=== PATIENT | female | born 1950 | race Caucasian/White ===

== ENCOUNTER → 2017-03-14 | Outpatient (CLI) | payer MEDICARE ==
--- NOTE | 2017-03-14 10:31 | MM ---
Reason for exam: screening (asymptomatic). Last mammogram was performed 1 year and 1 month ago. History: Patient is postmenopausal. Benign right US cyst aspiration ea add of the right breast, July 23, 2007. Benign right US cyst aspiration of the right breast, July 23, 2007. Benign US left CoreBiopsy of both breasts, July 23, 2007. Benign US left CoreBiopsy of both breasts, July 23, 2007. Benign US right core biopsy of the right breast, July 23, 2007. Took estrogen for 5 years 1 month. Took progesterone for 5 years 1 month. Physical Findings: A clinical breast exam by your physician is recommended on an annual basis and results should be correlated with mammographic findings. MG 3D Screening Mammo W/Cad Bilateral CC and MLO view(s) were taken. Prior study comparison: February 07, 2016, bilateral MG 3d screening mammo w/cad. April 05, 2014, bilateral MG screening mammo w CAD. The breast tissue is extremely dense which could obscure a lesion on mammography. Finding: There are typically benign calcifications in both breasts. Previous mammotome biopsy in the right and left breast. There is a chronic nodularity in the left breast, stable. No significant changes in finding since February 07, 2016 and April 05, 2014. ASSESSMENT: Benign, BI-RAD 2 RECOMMENDATION: Routine screening mammogram of both breasts in 1 year.
== END | disposition home or self-care (01) ==
LOC: RADMAMWWP 08:08
PROVIDERS: ATTEND Internal Medicine Geriatric Medicine
DX: Z12.31 Encounter for screening mammogram for malignant neoplasm of breast (principal)
CPT/HCPCS: 77063; G0202

== ENCOUNTER 2017-07-12 06:50 | Day surgery (SDC) | payer MEDICARE ==
[2017-07-10 11:17] VITALS: BMI 33.2
[~2017-07-12 06:50] MED LIST: LACTATED RINGERS 1,000 ML IV SCH
[2017-07-12 07:13] VITALS: TEMP 98
[2017-07-12 07:22] LABS: Glucose,Whole Blood 121 mg/dL (75-99)
[2017-07-12] MEDS ORDERED: PROPOFOL 10 MG/ML 20 ML VIAL IV ONE (07:31)
[2017-07-12] MEDS ORDERED: LIDOCAINE 1% INJ 10MG/ML (20 ML MDV) ONE (07:31)
--- NOTE | 2017-07-12 08:01 | P.PCN ---
Date of Procedure: 07/12/17 Procedure(s) Performed: Brief history: Patient is a pleasant 66-year-old white female, scheduled for an elective upper endoscopy as well as colonoscopy as a part of evaluation of intermittent dysphagia to solids and history of colon polyps. She had an episode of acute for dysphagia several years ago and was diagnosed with esophageal Schatzki's ring and last upper endoscopy with dilation was in 5 years ago. Lately she has been having intermittent dysphagia to solids. Her last colonoscopy was 5 years ago. Procedure performed: Esophagogastroduodenoscopy with biopsy and dilation Colonoscopy Preoperative diagnosis: Intermittent dysphagia to solids History of colon polyps Anesthesia: MAC Procedure: After informed consent was obtained from the patient was brought into the endoscopy unit and IV sedation was administered by anesthesia under continuous monitoring. Initially upper endoscopy was done. The Olympus GF 160 video endoscope was inserted inserted into the mouth and esophagus intubated without any difficulty and was gradually advanced into the stomach and duodenum and carefully examined. The bulb and second part of the duodenum appeared normal. The scope was then withdrawn into the stomach adequately insufflated with air and upon careful examination the antrum and body, appeared normal. In the proximal body. There were several gastric polyps identified which was biopsied. The cardia and fundus appeared normal. The scope was then withdrawn into the esophagus. Small hiatal hernia noted. The GE junction was located at 36 cm to the incisors. There was a distal esophageal Schatzki's ring identified which did not impede the passage of the scope. Because of the patient's symptoms I proceeded with a balloon dilation using 15-18 mm TTS balloon in a sequential fashion for total of 90 seconds. There was some mucosal oozing noted at the site of dilation. Further dilation was not performed. The GE junction appeared regular with no erythema erosions or ulcerations. Rest of the esophagus appeared normal. Patient tolerated the procedure well. At this time the patient continued to remain sedation. Initial digital rectal examination was normal. Olympus CF 160 video colonoscope was then inserted into the rectum and gradually advanced to the cecum without any difficulty. Careful examination was performed as the scope was gradually being withdrawn. The prep was excellent. The cecum, ascending colon, transverse colon, descending colon, sigmoid colon and rectum appeared normal. Scattered sigmoid diverticulosis seen. Retroflexion was performed in the rectum and no lesions were noted. Patient tolerated the procedure well. Impression: 1. Upper endoscopy revealed distal esophageal Schatzki's ring status post balloon dilation oozing 15-18 mm TTS balloon as described above. Small hiatal hernia and gastric polyps seen 2. Coloscopy revealed scattered sigmoid diverticulosis but no evidence of colitis or colorectal neoplasia Recommendations: Findings of this examination were discussed with the patient as well as her family. She was advised to follow with the biopsy results. She will remain on a clear liquid diet today, continue Prilosec 20 mg daily and follow anti-reflux measures. She can have a repeat colonoscopy in 5 years because of the prior history of colon polyps
[2017-07-12 08:02] VITALS: RESP 16
[2017-07-12 08:25] VITALS: BP 146/80; PULSE 74
== END 2017-07-12 08:53 | disposition home or self-care (01) ==
LOC: ORWHC2ENDO 06:50
PROVIDERS: ATTEND Internal Medicine Gastroenterology
DX: Z12.11 Encounter for screening for malignant neoplasm of colon (principal); K29.50 Unspecified chronic gastritis without bleeding; K21.9 Gastro-esophageal reflux disease without esophagitis; K22.2 Esophageal obstruction; K44.9 Diaphragmatic hernia without obstruction or gangrene; K31.7 Polyp of stomach and duodenum; K57.30 Diverticulosis of large intestine without perforation or abscess without bleeding; Z86.010 Personal history of colon polyps; E78.5 Hyperlipidemia, unspecified; E11.9 Type 2 diabetes mellitus without complications; Z79.84 Long term (current) use of oral hypoglycemic drugs; Z79.899 Other long term (current) drug therapy; Z88.8 Allergy status to other drugs, medicaments and biological substances
CPT/HCPCS: 88305; 88342; 43239; 43249; J2001; J2704; C1726; G0105; 45378

== ENCOUNTER → 2017-08-15 | Outpatient (CLI) | payer MEDICARE ==
--- NOTE | 2017-08-15 16:11 | XR ---
EXAMINATION TYPE: XR chest 2V DATE OF EXAM: 08/15/2017 COMPARISON: NONE HISTORY: Cough and congestion TECHNIQUE: Frontal and lateral views of the chest are obtained. FINDINGS: There is no focal air space opacity, pleural effusion, or pneumothorax seen. The cardiac silhouette size is within normal limits. The osseous structures are intact. Dextroscoliosis of the thoracic spine is noted with mild degenerative changes of the thoracic spine IMPRESSION: No acute cardiopulmonary process.
== END | disposition home or self-care (01) ==
LOC: RADXRMAIN 15:35
PROVIDERS: ATTEND Internal Medicine Geriatric Medicine
DX: J40 Bronchitis, not specified as acute or chronic (principal)
CPT/HCPCS: 71020

== ENCOUNTER 2019-03-14 18:23 | Inpatient (IN) | payer MEDICARE ==
[2019-03-14] MEDS ORDERED: SODIUM CHLORIDE 0.9% 1,000 ML IV STA ×2 (18:55)
[2019-03-14] MEDS ORDERED: PANTOPRAZOLE 40 MG/10 ML VIAL IVP STA (18:55)
[2019-03-14] MEDS ORDERED: KETOROLAC 30 MG/ML 1 ML VIAL IVP STA (18:55)
--- NOTE | 2019-03-14 19:10 | ED ---
Abdominal Pain HPI - General Source: patient, RN notes reviewed, old records reviewed Mode of arrival: ambulatory Limitations: no limitations <Moraima Lara - Last Filed: 03/14/19 20:15> <Vijay Moreno - Last Filed: 03/14/19 20:52> - General Chief Complaint: Abdominal Pain Stated Complaint: ABDOMINAL PAIN, BLADDER DISTENSION, POSS CONSTIPAT Time Seen by Provider: 03/14/19 18:34 - History of Present Illness Initial Comments: Patient is a 68-year-old female who presents prescribed today with 2 weeks of abdominal distention, and lower abdominal pain. Patient states that she initially thought she had a urinary tract infections are primary care doctor 2 weeks ago. That time her urine was clear, just started on stool softeners. Patient states that since that time and despite taking stool softeners she has not had some bowel movement but has not been eating much. Patient states that she's had a history of instructed me, rectocele and bladder sling procedure done by Dr. Harris many years ago. Patient reports that she's been having some chills but no specific fever. She is also had a minor cough which Patient states that the could just likely be viral. Her main concern is lower abdominal pain and distention. Patient reports that she's had colonoscopy 2 years ago which showed some benign polyps and diverticulosis. (Moraima Lara) - Related Data Home Medications Medication Instructions Recorded Confirmed Omeprazole [PriLOSEC] 20 mg PO HS 07/10/17 03/14/19 Simvastatin [Zocor] 20 mg PO HS 07/10/17 03/14/19 Ergocalciferol [Vitamin D2] 50,000 unit PO TU 03/14/19 03/14/19 Polyethylene Glycol 3350 [Miralax] 17 gm PO HS 03/14/19 03/14/19 Repaglinide [Prandin] 1 mg PO AC-BID 03/14/19 03/14/19 Sennosides [Senokot] 8.6 mg PO HS 03/14/19 03/14/19 sitaGLIPtin [Januvia] 100 mg PO HS 03/14/19 03/14/19 Allergies Allergy/AdvReac Type Severity Reaction Status Date / Time chlorpromazine AdvReac felt like Verified 03/14/19 18:59 [From Thorazine] skin crawling Review of Systems ROS Other: All systems not noted in ROS Statement are negative. <JaneMoraima - Last Filed: 03/14/19 20:15> ROS Other: All systems not noted in ROS Statement are negative. <Vijay Moreno Lexx - Last Filed: 03/14/19 20:52> ROS Statement: Those systems with pertinent positive or pertinent negative responses have been documented in the HPI. Past Medical History Past Medical History: Diabetes Mellitus, GERD/Reflux, Hyperlipidemia Additional Past Medical History / Comment(s): hx. colon polyps, Schatzki's ring History of Any Multi-Drug Resistant Organisms: None Reported Past Surgical History: Hysterectomy Additional Past Surgical History / Comment(s): rectocele,cystocele repair Past Anesthesia/Blood Transfusion Reactions: No Reported Reaction Smoking Status: Never smoker Past Alcohol Use History: None Reported Past Drug Use History: None Reported - Past Family History Father Family Medical History: Cancer <Moraima Lara - Last Filed: 03/14/19 20:15> General Exam Limitations: no limitations General appearance: alert, in no apparent distress Head exam: Present: atraumatic, normocephalic, normal inspection Eye exam: Present: normal appearance, PERRL, EOMI. Absent: scleral icterus, conjunctival injection, periorbital swelling ENT exam: Present: normal exam, mucous membranes moist Neck exam: Present: normal inspection. Absent: tenderness, meningismus, lymphadenopathy Respiratory exam: Present: normal lung sounds bilaterally. Absent: respiratory distress, wheezes, rales, rhonchi, stridor Cardiovascular Exam: Present: regular rate, normal rhythm, normal heart sounds. Absent: systolic murmur, diastolic murmur, rubs, gallop, clicks GI/Abdominal exam: Present: soft, distended, normal bowel sounds. Absent: tenderness, guarding, rebound, rigid Extremities exam: Present: normal inspection, full ROM, normal capillary refill. Absent: tenderness, pedal edema, joint swelling, calf tenderness Back exam: Present: normal inspection Neurological exam: Present: alert, oriented X3, CN II-XII intact Psychiatric exam: Present: normal affect, normal mood Skin exam: Present: warm, dry, intact, normal color. Absent: rash <Moraima Lara - Last Filed: 06/15/19 20:15> - General Exam Comments Initial Comments: 5-year-old female. Alert and oriented 3. No distress. (Moraima Lara) Course Vital Signs 03/14/19 18:28 Temperature 98.3 F Pulse Rate 122 H Respiratory 18 Rate Blood Pressure 141/81 O2 Sat by Pulse 98 Oximetry Medical Decision Making - Lab Data Result diagrams: 03/14/19 18:55 03/14/19 18:55 - Radiology Data Radiology results: report reviewed <Moraima Lara - Last Filed: 03/14/19 20:15> - Lab Data Result diagrams: 03/14/19 18:55 03/14/19 18:55 <Vijay Moreno - Last Filed: 03/14/19 20:52> - Medical Decision Making Patient is a 68-year-old female presents for in terms today with left lower quadrant pain, concern for lack of bowel movements and lower abdominal abdominal distention. Chest left lower quadrant tenderness. Blood work was reviewed. She does have elevated white blood cell count of 15,000 with a mild of a lactic acid 2.3. She was given fluids. Abdominal x-ray shows normal bowel gas pattern, no significant obstruction. Chest x-ray shows evidence of mild bronchitis. She does report a slight cough. Due to the elevated white blood cell count continued tenderness Patient had CT abdomen and pelvis with contrast completed. Dr. Moreno and will take over the case at 8:16 PM. (Moraima Lara) Patient care was signed out to me by previous shift physician mailroom assistant Amy Lara. Patient is 68-year-old female who presents with left lower quadrant abdominal symptoms for the last 2-3 weeks. Patient does have constitutional symptoms. She does have white count 15. CT shows complex diverticulitis with abscess formation. Patient started on Zosyn. Discussed patient case with general surgeon on-call who requests the patient be admitted to him with medicine on consultation. Patient is understandable and agreeable to disposition. (Vijay Moreno) - Lab Data Lab Results 03/14/19 03/14/19 03/14/19 Range/Units 18:55 18:55 18:55 WBC 15.6 H (3.8-10.6) k/uL RBC 4.27 (3.80-5.40) m/uL Hgb 12.3 (11.4-16.0) gm/dL Hct 36.7 (34.0-46.0) % MCV 85.9 (80.0-100.0) fL MCH 28.8 (25.0-35.0) pg MCHC 33.6 (31.0-37.0) g/dL RDW 14.7 (11.5-15.5) % Plt Count 375 (150-450) k/uL Neutrophils % 80 % Lymphocytes % 10 % Monocytes % 7 % Eosinophils % 1 % Basophils % 0 % Neutrophils # 12.5 H (1.3-7.7) k/uL Lymphocytes # 1.5 (1.0-4.8) k/uL Monocytes # 1.1 H (0-1.0) k/uL Eosinophils # 0.2 (0-0.7) k/uL Basophils # 0.1 (0-0.2) k/uL Sodium 137 (137-145) mmol/L Potassium 4.3 (3.5-5.1) mmol/L Chloride 100 (98-107) mmol/L Carbon Dioxide 25 (22-30) mmol/L Anion Gap 12 mmol/L BUN 9 (7-17) mg/dL Creatinine 0.73 (0.52-1.04) mg/dL Est GFR (CKD-EPI)AfAm >90 (>60 ml/min/1.73 sqM) Est GFR (CKD-EPI)NonAf 84 (>60 ml/min/1.73 sqM) Glucose 128 H (74-99) mg/dL Plasma Lactic Acid Dread (0.7-2.0) mmol/L Calcium 9.2 (8.4-10.2) mg/dL Total Bilirubin 0.7 (0.2-1.3) mg/dL AST 22 (14-36) U/L ALT 31 (9-52) U/L Alkaline Phosphatase 141 H (38-126) U/L Total Protein 6.7 (6.3-8.2) g/dL Albumin 3.5 (3.5-5.0) g/dL Amylase <30 L (30-110) U/L Lipase 30 (23-300) U/L Urine Color Yellow Urine Appearance Cloudy H (Clear) Urine pH 6.5 (5.0-8.0) Ur Specific [place] 1.017 (1.001-1.035) Urine Protein 1+ H (Negative) Urine Glucose (UA) 2+ H (Negative) Urine Ketones Negative (Negative) Urine Blood Negative (Negative) Urine Nitrite Negative (Negative) Urine Bilirubin Negative (Negative) Urine Urobilinogen <2.0 (<2.0) mg/dL Ur Leukocyte Esterase Negative (Negative) Urine WBC 7 H (0-5) /hpf Ur Squamous Epith Cells 13 H (0-4) /hpf Urine Bacteria Few H (None) /hpf Urine Mucus Many H (None) /hpf Stool Occult Blood (Negative) 03/14/19 03/14/19 Range/Units 18:55 19:30 WBC (3.8-10.6) k/uL RBC (3.80-5.40) m/uL Hgb (11.4-16.0) gm/dL Hct (34.0-46.0) % MCV (80.0-100.0) fL MCH (25.0-35.0) pg MCHC (31.0-37.0) g/dL RDW (11.5-15.5) % Plt Count (150-450) k/uL Neutrophils % % Lymphocytes % % Monocytes % % Eosinophils % % Basophils % % Neutrophils # (1.3-7.7) k/uL Lymphocytes # (1.0-4.8) k/uL Monocytes # (0-1.0) k/uL Eosinophils # (0-0.7) k/uL Basophils # (0-0.2) k/uL Sodium (137-145) mmol/L Potassium (3.5-5.1) mmol/L Chloride (98-107) mmol/L Carbon Dioxide (22-30) mmol/L Anion Gap mmol/L BUN (7-17) mg/dL Creatinine (0.52-1.04) mg/dL Est GFR (CKD-EPI)AfAm (>60 ml/min/1.73 sqM) Est GFR (CKD-EPI)NonAf (>60 ml/min/1.73 sqM) Glucose (74-99) mg/dL Plasma Lactic Acid Dread 2.3 H* (0.7-2.0) mmol/L Calcium (8.4-10.2) mg/dL Total Bilirubin (0.2-1.3) mg/dL AST (14-36) U/L ALT (9-52) U/L Alkaline Phosphatase (38-126) U/L Total Protein (6.3-8.2) g/dL Albumin (3.5-5.0) g/dL Amylase (30-110) U/L Lipase (23-300) U/L Urine Color Urine Appearance (Clear) Urine pH (5.0-8.0) Ur Specific [place] (1.001-1.035) Urine Protein (Negative) Urine Glucose (UA) (Negative) Urine Ketones (Negative) Urine Blood (Negative) Urine Nitrite (Negative) Urine Bilirubin (Negative) Urine Urobilinogen (<2.0) mg/dL Ur Leukocyte Esterase (Negative) Urine WBC (0-5) /hpf Ur Squamous Epith Cells (0-4) /hpf Urine Bacteria (None) /hpf Urine Mucus (None) /hpf Stool Occult Blood Negative (Negative) - Radiology Data Correlating for bronchitis or asthma on chest x-ray. No focal infiltrate. CT shows evidence of ST scoliosis. No evidence of bowel obstruction or free intraperitoneal air. (Moraima Lara) Disposition <Moraima Lara - Last Filed: 03/14/19 20:15> Decision Time: 20:52 <Vijay Moreno - Last Filed: 03/14/19 20:52> Clinical Impression: Diverticulitis of large intestine with complication Disposition: ADMITTED IP TO THIS HOSP Condition: Fair Referrals: Tariq Ann MD [Primary Care Provider] - 1-2 days
[2019-03-14 19:21] LABS: Basophils # (A) 0.1 k/uL (0-0.2); Basophils % (A) 0 %; Eosinophils # (A) 0.2 k/uL (0-0.7); Eosinophils % (A) 1 %; HCT 36.7 % (34.0-46.0); HGB 12.3 gm/dL (11.4-16.0); Lymphocytes # (A) 1.5 k/uL (1.0-4.8); Lymphocytes % (A) 10 %; MCH 28.8 pg (25.0-35.0); MCHC 33.6 g/dL (31.0-37.0); MCV 85.9 fL (80.0-100.0); Mean Platelet Volume 7.8; Monocytes # (A) 1.1 k/uL (0-1.0); Monocytes % (A) 7 %; Neutrophils # (A) 12.5 k/uL (1.3-7.7); Neutrophils % (A) 80 %; Platelet Count 375 k/uL (150-450); RBC 4.27 m/uL (3.80-5.40); RDW 14.7 % (11.5-15.5); WBC 15.6 k/uL (3.8-10.6)
[2019-03-14 19:30] LABS: ALT 31 U/L (9-52); AST 22 U/L (14-36); African American GFR (CKD) >90 (>60 ml/min/1.73 sqM); Albumin 3.5 g/dL (3.5-5.0); Alkaline Phosphatase 141 U/L (38-126); Amylase <30 U/L (30-110); Anion Gap 12 mmol/L; Blood Urea Nitrogen 9 mg/dL (7-17); Calcium 9.2 mg/dL (8.4-10.2); Carbon Dioxide 25 mmol/L (22-30); Chloride 100 mmol/L (98-107); Glucose 128 mg/dL (74-99); Lipase 30 U/L (23-300); Potassium 4.3 mmol/L (3.5-5.1); Sodium 137 mmol/L (137-145); Total Bilirubin 0.7 mg/dL (0.2-1.3); Total Protein 6.7 g/dL (6.3-8.2)
[2019-03-14 19:34] LABS: Appearance,Urine Cloudy (Clear); Bacteria,Urine Few /hpf; Bilirubin,Urine Negative (Negative); Blood,Urine Negative (Negative); Color,Urine Yellow; Glucose,Urine (UA) 2+ (Negative); Ketones,Urine Negative (Negative); Leukocyte Esterase,Urine Negative (Negative); Mucus,Urine Many /hpf; Nitrite,Urine Negative (Negative); PH, Urine 6.5 (5.0-8.0); Protein,Urine 1+ (Negative); Specific Gravity,Urine 1.017 (1.001-1.035); Squamous Epithelial Cell,Urine 13 /hpf (0-4); Urobilinogen,Urine <2.0 mg/dL (<2.0); WBC,Urine 7 /hpf (0-5)
--- NOTE | 2019-03-14 19:50 | XR ---
EXAMINATION TYPE: XR chest 2V DATE OF EXAM: 03/14/2019 COMPARISON: 08/15/2017 HISTORY: 68-year-old female with pain TECHNIQUE: PA and lateral views FINDINGS: The heart is normal size. Dextroconvexed scoliosis of the thoracic spine. Mild elongation thoracic ao rta. Diffuse peribronchial cuffing. No consolidation or pleural effusion. IMPRESSION: 1. Correlate for bronchitis or asthma. No focal infiltrate. 2. Dextroconvex scoliosis.
--- NOTE | 2019-03-14 19:51 | XR ---
EXAMINATION TYPE: XR KUB DATE OF EXAM: 03/14/2019 CLINICAL DATA: 68-year-old female with abdominal pain, [facility] COMPARISON: None FINDINGS: Lung bases are clear. No evidence for free intraperitoneal air. No dilated small bowel or air-fluid levels. Scattered air air is seen throughout the colon extending distally into the rectum. No suspicious calcifications identified. S-shaped scoliosis. IMPRESSION: S-shaped scoliosis. No evidence of bowel obstruction or free intraperitoneal air.
[2019-03-14] MEDS ORDERED: MORPHINE SULFATE 4 MG/ML SYRINGE IVP STA (19:56)
--- NOTE | 2019-03-14 20:31 | CT ---
EXAMINATION TYPE: CT abdomen pelvis w con DATE OF EXAM: 03/14/2019 COMPARISON: 08/16/2015 HISTORY: 68-year-old female with pelvic pain and bloating TECHNIQUE: Contiguous axial scanning of the abdomen and pelvis following administration of 100 ml Iso dina 300 IV contrast. Delayed images through the kidneys and coronal/sagittal reconstructions perform ed. CT DLP: 875 mGycm Automated exposure control for dose reduction was used. FINDINGS: Heart normal size without pericardial effusion. Right basilar pulmonary nodules measuring up to 7 mm are unchanged from 2015 compatible with benign etiology. No pleural effusion. Moderate sized hiatal hernia is redemonstrated. No focal liver lesion or biliary ductal dilatation. Portal venous system is patent. Gallbladder, adrenal glands, left kidney, spleen with hilar splenule, pancreas appear within normal l imits. No dilated small bowel, free fluid, or free air. No mesenteric or retroperitoneal lymphadenopathy. There is sigmoid diverticulosis with wall thickening involving the distal sigmoid and moderate to sev ere surrounding inflammatory fat stranding tracking down along the inferior rectum. There is thickened soft tissue bands extending from the distal sigmoid to the right adnexa where a 2. 2 cm fluid locule involves the right ovary. Additional thickened band extending to the left adnexa. Along the mid rectum, there is a possible abnormal extension extending anteriorly to the vaginal cuff region where a 5.0 x 6.1 cm thick-walled fluid collection is present. The vaginal canal itself appea rs relatively collapsed. No obvious pelvic lymphadenopathy. Bones: Degenerative changes at the hips. Hypertrophic facet arthropathy mid to lower lumbar spine wit h grade 1 anterolisthesis at L4-L5. Incidental 1.5 cm Tarlov cyst within the left sacrum. IMPRESSION: 1. EXTENSIVE INFLAMMATORY CHANGES IN THE PELVIS. THERE IS SIGMOID DIVERTICULOSIS WITH WALL THICKENING AND MODERATE TO SEVERE SURROUNDING INFLAMMATION SUGGESTING ACUTE DIVERTICULITIS. INFLAMMATORY CHANGE S EXTEND ALONG THE DISTAL SIGMOID EXTENDING DOWN TO THE RECTUM. 2. A 6.1 X 5.0 CM ABSCESS LOCATED NEAR THE VAGINAL CUFF REGION WITH MASS EFFECT ONTO THE POSTERIOR WA LL OF THE BLADDER. POSSIBLE FISTULOUS COMMUNICATION FROM THE RECTUM LOCATED POSTERIORLY, AXIAL IMAGE 67. 3. THICKENED SOFT TISSUE EXTENSIONS (FISTULA TRACTS?) FROM THE DISTAL SIGMOID TO BOTH THE RIGHT AND L EFT ADNEXA. THERE IS A CYSTIC LOCULE WITHIN THE RIGHT ADNEXA MEASURING 2.2 CM THAT COULD REPRESENT AN ADDITIONAL SMALL ABSCESS.
[2019-03-14] MEDS ORDERED: PIPERACILLIN-TAZOBACTAM 3.375 GM in SODIUM CHLORIDE 0.9% 100 ML IVPB STA (20:36)
[2019-03-14] MEDS ORDERED: NALOXONE 0.4 MG/ML 1 ML VIAL IV PRN (20:52)
[2019-03-14] MEDS ORDERED: ONDANSETRON 4 MG/2 ML VIAL IVP PRN (20:52)
[2019-03-14] MEDS ORDERED: ACETAMINOPHEN TAB 325 MG TAB PO PRN (20:52)
[2019-03-14] MEDS: SODIUM CHLORIDE 0.9% 1,000 ML IV SCH (22:30)
[2019-03-14] MEDS: HEPARIN SODIUM,PORCINE 5,000 UNIT/ML 1 ML VIAL SQ SCH (23:25)
[2019-03-14] MEDS: metroNIDAZOLE-NS PMX 500 MG in SALINE 1 100ML.BAG IVPB SCH (23:26)
[2019-03-15] MEDS: PIPERACILLIN-TAZOBACTAM 3.375 GM in SODIUM CHLORIDE 0.9% 100 ML IVPB SCH ×3 (05:27→21:53)
[2019-03-15] MEDS: HEPARIN SODIUM,PORCINE 5,000 UNIT/ML 1 ML VIAL SQ SCH ×3 (06:44→23:42)
[2019-03-15 07:13] LABS: Basophils % (A) 0 %; Eosinophils # (A) 0.2 k/uL (0-0.7); Eosinophils % (A) 1 %; HCT 33.7 % (34.0-46.0); Lymphocytes # (A) 1.3 k/uL (1.0-4.8); Lymphocytes % (A) 11 %; MCH 28.7 pg (25.0-35.0); MCHC 32.8 g/dL (31.0-37.0); MCV 87.5 fL (80.0-100.0); Mean Platelet Volume 6.9; Monocytes # (A) 0.8 k/uL (0-1.0); Monocytes % (A) 6 %; Neutrophils # (A) 9.8 k/uL (1.3-7.7); Neutrophils % (A) 80 %; Platelet Count 329 k/uL (150-450); RBC 3.85 m/uL (3.80-5.40); WBC 12.2 k/uL (3.8-10.6)
[2019-03-15 07:28] LABS: INR 0.9 (<1.2); Partial Thromboplastin Time 23.3 sec (22.0-30.0)
[2019-03-15 08:15] LABS: ALT 18 U/L (9-52); AST 23 U/L (14-36); African American GFR (CKD) >90 (>60 ml/min/1.73 sqM); Albumin 2.9 g/dL (3.5-5.0); Alkaline Phosphatase 116 U/L (38-126); Anion Gap 11 mmol/L; Blood Urea Nitrogen 9 mg/dL (7-17); Calcium 8.5 mg/dL (8.4-10.2); Carbon Dioxide 21 mmol/L (22-30); Chloride 108 mmol/L (98-107); Glucose 119 mg/dL (74-99); Potassium 3.7 mmol/L (3.5-5.1); Sodium 140 mmol/L (137-145); Total Bilirubin 0.7 mg/dL (0.2-1.3); Total Protein 5.9 g/dL (6.3-8.2)
[2019-03-15] MEDS: metroNIDAZOLE-NS PMX 500 MG in SALINE 1 100ML.BAG IVPB SCH ×2 (10:09→16:00)
[2019-03-15] MEDS: PANTOPRAZOLE 40 MG TABLET PO SCH (10:13)
[2019-03-15] MEDS: MORPHINE SULFATE 4 MG/ML SYRINGE IV PRN (10:16)
--- NOTE | 2019-03-15 10:23 | P.GSHP ---
History of Present Illness H&P Date: 03/15/19 Chief Complaint: Diverticular abscess 68-year-old female comes in the ER yesterday with complaints of lower abdominal pain. Patient states this has been gradually increasing. Slightly to the left of midline. Also has had constipated. Some chills but no fever. Feels bloa nelida. Last colonoscopy 2-3 years ago. In mid January the patient had an episode of lower abdominal pain and fevers. She felt that at that time she had food poisoning possibly. CAT scan was performed which reveals a 4.5-5 cm abscess between the sigmoid colon and bladder. An adjacent smaller 2.5 cm abscess is also noted. No free air is seen. This appears most consistent with a diverticular abscess. Patient did have 1 episode of diverticulitis 3-4 years ago. - Review of Systems Comment: The patient denies any acute changes in vision or hearing, no dysphagia or odynophagia, no chest pain or shortness of breath, no dysuria or hematuria, no headache, no runny nose, no rectal bleeding or melena, no unexplained weight loss Past Medical History Past Medical History: Diabetes Mellitus, GERD/Reflux, Hyperlipidemia Additional Past Medical History / Comment(s): hx. colon polyps, Schatzki's ring History of Any Multi-Drug Resistant Organisms: None Reported Past Surgical History: Hysterectomy Additional Past Surgical History / Comment(s): rectocele,cystocele repair Past Anesthesia/Blood Transfusion Reactions: No Reported Reaction Smoking Status: Never smoker Past Alcohol Use History: None Reported Past Drug Use History: None Reported - Past Family History Father Family Medical History: Cancer Additional Family Medical History / Comment(s): non hodgkins lymphoma Mother Family Medical History: No Reported History Additional Family Medical History / Comment(s): at 90 [facility] Medications and Allergies Home Medications Medication Instructions Recorded Confirmed Type Omeprazole [PriLOSEC] 20 mg PO HS 07/10/17 03/14/19 History Simvastatin [Zocor] 20 mg PO HS 07/10/17 03/14/19 History Ergocalciferol [Vitamin D2] 50,000 unit PO TU 03/14/19 03/14/19 History Polyethylene Glycol 3350 [Miralax] 17 gm PO HS 03/14/19 03/14/19 History Repaglinide [Prandin] 1 mg PO AC-BID 03/14/19 03/14/19 History Sennosides [Senokot] 8.6 mg PO HS 03/14/19 03/14/19 History sitaGLIPtin [Januvia] 100 mg PO HS 03/14/19 03/14/19 History Allergies Allergy/AdvReac Type Severity Reaction Status Date / Time chlorpromazine AdvReac felt like Verified 03/14/19 18:59 [From Thorazine] skin crawling Surgical - Exam Vital Signs Temp Pulse Resp BP Pulse Ox 98.3 F 122 H 18 141/81 98 03/14/19 18:28 03/14/19 18:28 03/14/19 18:28 03/14/19 18:28 03/14/19 18:28 Physical exam: General: Well-developed, well-nourished HEENT: Normocephalic, sclerae nonicteric Abdomen: Left lower quadrant and suprapubic tenderness, no rebound or guarding, nondistended Extremities: No edema Neuro: Alert and oriented Results - Labs 03/15/19 06:54 03/15/19 06:54 Abnormal Lab Results - Last 24 Hours (Table) 03/14/19 03/14/19 03/14/19 Range/Units 18:55 18:55 18:55 WBC 15.6 H (3.8-10.6) k/uL Hgb (11.4-16.0) gm/dL Hct (34.0-46.0) % Neutrophils # 12.5 H (1.3-7.7) k/uL Monocytes # 1.1 H (0-1.0) k/uL Chloride (98-107) mmol/L Carbon Dioxide (22-30) mmol/L Glucose 128 H (74-99) mg/dL Plasma Lactic Acid Dread (0.7-2.0) mmol/L Alkaline Phosphatase 141 H (38-126) U/L Total Protein (6.3-8.2) g/dL Albumin (3.5-5.0) g/dL Amylase <30 L (30-110) U/L Urine Appearance Cloudy H (Clear) Urine Protein 1+ H (Negative) Urine Glucose (UA) 2+ H (Negative) Urine WBC 7 H (0-5) /hpf Ur Squamous Epith Cells 13 H (0-4) /hpf Urine Bacteria Few H (None) /hpf Urine Mucus Many H (None) /hpf 03/14/19 03/15/19 03/15/19 Range/Units 18:55 06:54 06:54 WBC 12.2 H (3.8-10.6) k/uL Hgb 11.0 L (11.4-16.0) gm/dL Hct 33.7 L (34.0-46.0) % Neutrophils # 9.8 H (1.3-7.7) k/uL Monocytes # (0-1.0) k/uL Chloride 108 H (98-107) mmol/L Carbon Dioxide 21 L (22-30) mmol/L Glucose 119 H (74-99) mg/dL Plasma Lactic Acid Dread 2.3 H* (0.7-2.0) mmol/L Alkaline Phosphatase (38-126) U/L Total Protein 5.9 L (6.3-8.2) g/dL Albumin 2.9 L (3.5-5.0) g/dL Amylase (30-110) U/L Urine Appearance (Clear) Urine Protein (Negative) Urine Glucose (UA) (Negative) Urine WBC (0-5) /hpf Ur Squamous Epith Cells (0-4) /hpf Urine Bacteria (None) /hpf Urine Mucus (None) /hpf Diabetes panel 03/14/19 03/15/19 Range/Units 18:55 06:54 Sodium 137 140 (137-145) mmol/L Potassium 4.3 3.7 (3.5-5.1) mmol/L Chloride 100 108 H (98-107) mmol/L Carbon Dioxide 25 21 L (22-30) mmol/L BUN 9 9 (7-17) mg/dL Creatinine 0.73 0.68 (0.52-1.04) mg/dL Glucose 128 H 119 H (74-99) mg/dL Calcium 9.2 8.5 (8.4-10.2) mg/dL AST 22 23 (14-36) U/L ALT 31 18 (9-52) U/L Alkaline Phosphatase 141 H 116 (38-126) U/L Total Protein 6.7 5.9 L (6.3-8.2) g/dL Albumin 3.5 2.9 L (3.5-5.0) g/dL Calcium panel 03/14/19 03/15/19 Range/Units 18:55 06:54 Calcium 9.2 8.5 (8.4-10.2) mg/dL Albumin 3.5 2.9 L (3.5-5.0) g/dL Pituitary panel 03/14/19 03/15/19 Range/Units 18:55 06:54 Sodium 137 140 (137-145) mmol/L Potassium 4.3 3.7 (3.5-5.1) mmol/L Chloride 100 108 H (98-107) mmol/L Carbon Dioxide 25 21 L (22-30) mmol/L BUN 9 9 (7-17) mg/dL Creatinine 0.73 0.68 (0.52-1.04) mg/dL Glucose 128 H 119 H (74-99) mg/dL Calcium 9.2 8.5 (8.4-10.2) mg/dL Adrenal panel 03/14/19 03/15/19 Range/Units 18:55 06:54 Sodium 137 140 (137-145) mmol/L Potassium 4.3 3.7 (3.5-5.1) mmol/L Chloride 100 108 H (98-107) mmol/L Carbon Dioxide 25 21 L (22-30) mmol/L BUN 9 9 (7-17) mg/dL Creatinine 0.73 0.68 (0.52-1.04) mg/dL Glucose 128 H 119 H (74-99) mg/dL Calcium 9.2 8.5 (8.4-10.2) mg/dL Total Bilirubin 0.7 0.7 (0.2-1.3) mg/dL AST 22 23 (14-36) U/L ALT 31 18 (9-52) U/L Alkaline Phosphatase 141 H 116 (38-126) U/L Total Protein 6.7 5.9 L (6.3-8.2) g/dL Albumin 3.5 2.9 L (3.5-5.0) g/dL Assessment and Plan (1) Colonic diverticular abscess Narrative/Plan: Clinical scenario reviewed with the patient and her . We also reviewed the patient's recent CAT scan films together. Unfortunately this abscess the larger of the 2 is not accessible to percutaneous drainage without risks of iatrogenic injury. At this time recommend laparoscopic drainage pelvic abscess. Based on the intraoperative findings there is the possibility that we would n eed to convert to an open procedure with colectomy and colostomy. Risks of bleeding, infection, abscess recurrence, bladder and bowel injury, leak, ureteral injury, hernia, wound infection reviewed. They understand and wish to proceed. Current Visit: Yes Status: Acute Code(s): K57.20 - DVTRCLI OF LG INT W PERFORATION AND ABSCESS W/O BLEEDING SNOMED Code(s): 023883906
[2019-03-15] MEDS: SODIUM CHLORIDE 0.9% 1,000 ML IV SCH (10:24)
[2019-03-15 12:14] LABS: Glucose,Whole Blood 128 mg/dL (75-99)
[2019-03-15] MEDS ORDERED: MIDAZOLAM (PF) 2 MG/2 ML VIAL IVP ONE (12:15)
[2019-03-15] MEDS ORDERED: LIDOCAINE 1% INJ 10MG/ML (20 ML MDV) ONE (12:49)
[2019-03-15] MEDS ORDERED: PROPOFOL 10 MG/ML 20 ML VIAL IV ONE (12:49)
[2019-03-15] MEDS ORDERED: SUCCINYLCHOLINE CHLORIDE 100 MG/5 ML SYR IV ONE (12:49)
[2019-03-15] MEDS ORDERED: MIDAZOLAM 2 MG/2 ML VIAL ONE (12:49)
[2019-03-15] MEDS ORDERED: GLYCOPYRROLATE 0.2 MG/ML 2 ML VIAL ONE (12:49)
[2019-03-15] MEDS ORDERED: ROCURONIUM BROMIDE 10 MG/ML 10 ML VIAL IV ONE (12:49)
[2019-03-15] MEDS ORDERED: SODIUM CHLORIDE 0.9% 1,000 ML IV ONE (12:49)
[2019-03-15] MEDS ORDERED: NEOSTIGMINE 1 MG/ML 10 ML VIAL ONE (12:49)
[2019-03-15] MEDS ORDERED: fentaNYL (PF) 50 MCG/ML 2 ML AMP ONE (12:49)
[2019-03-15] MEDS ORDERED: BUPIVACAINE (PF) 0.25% 30 ML VIAL SQ ONE (13:10)
[2019-03-15] MEDS ORDERED: LACTATED RINGERS 1,000 ML IV ONE (13:15)
--- NOTE | 2019-03-15 13:53 | P.OP ---
Date of Procedure: 03/15/19 Procedure(s) Performed: PREOPERATIVE DIAGNOSIS: Diverticular abscess POSTOPERATIVE DIAGNOSIS: Diverticular abscess, small right ovarian cyst PROCEDURE: Laparoscopic drainage diverticular abscess SURGEON: Arron EBL: 10 mL ANESTHESIA: General COMPLICATIONS: None OPERATIVE PROCEDURE: She placed in the operative table in the supine position for the patient's placed under general anesthesia. Using an optical trocar I entered the peritoneal cavity in the right upper quadrant. Full insufflation took place to 15 mmHg. An additional 5 mm trocar was placed in the supra umbilical location as well as the right lower quadrant. The patient had a loop of small bowel that was densely adherent to the pelvis. Careful blunt dissection was able to move this loop laterally to the left. I could not fully dissect this away from the pelvis. I was able to visualize a small cyst in the right ovary which matches the 2 cm fluid collection seen on CAT scan. Further blunt dissection occurred entering into the abscess cavity behind the bladder. This was very foul-smelling. Cultures were taken. The abscess cavity was thoroughly irrigated with saline. I then switched my 5 mm right lower quadrant trocar to a 10 mm trocar. Through that a 19-Divehi channel drain was advanced into the peritoneal cavity. The tip of the drain was advanced into the abscess cavity. The trochars removed. The drain was sutured to the skin using a 2-0 silk stitch. Pneumoperitoneum was evacuated. Skin incision at our 5 mm sites was closed using a 4-0 Monocryl stitch. Skin glue was utilized. A drain sponge was applied around the drain site. DISPOSITION: Stable to recovery room
[2019-03-15] MEDS: HYDROmorphone 1 MG/ML 1 ML SYRINGE IVP ONE ×2 (14:01→14:08)
[2019-03-15] MEDS ORDERED: METOPROLOL TARTRATE 5 MG/5 ML VIAL IVP ONE (14:08)
[2019-03-15] MEDS: KETOROLAC 30 MG/ML 1 ML VIAL IVP SCH ×3 (14:22→23:42)
[2019-03-15 14:43] LABS: Glucose,Whole Blood 126 mg/dL (75-99)
--- NOTE | 2019-03-15 16:48 | P.CONS ---
History of Present Illness - Reason for Consult Consult date: 03/15/19 Preop clearance medical management Requesting physician: Beto Heller - Chief Complaint abdominal pain lower - History of Present Illness This is a pleasant 68-year-old old lady patient of Dr. Ann. She has underlying history of diverticular disease, admitted to the emergency room secondary to 2 weeks of abdominal pain, and abdominal distention. Patient was evaluated/examined by PCP 2 weeks ago, and as she thought to have a urinary tract infection. She was started on stool softeners as the urine was clean scheduled to have an abdominal US in am, patient has diminished appetite, has chills no fevers, increasing abdominal pain in the lower left lower quadrant a janki, she was subsequently seen in the emergency room, secondary to acute complex diverticulitis. Emergency room evaluation included a CAT scan of the abdomen and pelvis showing complex diverticulitis with abscess formation, patient was started on IV Zosyn, as white count is 15, and was scheduled to undergo emergent pelvic abscess drainage, we are consulted medically for preop clearance, I have requested an EKG, and a GLUE MIXER proBNP, patient was sent down to the operating table without these numbers, she denies any history of CAD no CHF in the past, patient has diabetes mellitus on oral agents, not insulin, no history off underlying kidney disease stage III, no history of CVA in the past. Review of Systems Constitutional: Reports as per HPI, Reports anorexia, Reports chills, Reports fever, Reports poor appetite, Denies chronic headaches, Denies chronic pain, Denies daytime sleepiness, Denies fatigue, Denies lethargy, Denies malaise, Denies night sweats, Denies sweats, Denies weakness, Denies weight gain, Denies weight loss Ears, nose, mouth and throat: Reports as per HPI, Denies ant. neck pain, Denies bleeding gums, Denies dental pain, Denies dysphagia, Denies epistaxis, Denies headache, Denies hoarseness, Denies mouth pain, Denies nasal congestion, Denies nasal discharge, Denies neck fullness/pressure, Denies neck lump, Denies nose pain, Denies odynophagia, Denies post-nasal drip, Denies sinus pain, Denies sinus pressure, Denies swelling in mouth, Denies swelling in throat, Denies sore throat, Denies vertigo, Denies voice changes Cardiovascular: Reports as per HPI, Denies chest pain, Denies claudication, Denies decreased exercise tolerance, Denies dyspnea on exertion, Denies edema, Denies high blood pressure, Denies irregular heart beat, Denies leg edema, Denies lightheadedness, Denies orthopnea, Denies palpitations, Denies paroxysmal nocturnal dyspnea, Denies phlebitis, Denies rapid heart beat, Denies shortness of breath, Denies syncope Respiratory: Reports as per HPI, Denies congestion, Denies cough, Denies cough with sputum, Denies dyspnea, Denies excessive sputum, Denies hemoptysis, Denies home oxygen, Denies pain, Denies pain on inspiration, Denies pleurisy, Denies respiratory infections, Denies sleep apnea, Denies snoring, Denies wheezing Gastrointestinal: Reports as per HPI, Reports abdominal pain, Reports bloating, Reports constipation, Reports loss of appetite, Reports nausea, Denies belching, Denies BRBPR, Denies change in bowel habits, Denies coffee ground emesis, Denies diarrhea, Denies dyspepsia, Denies early satiety, Denies excessive gas, Denies heartburn, Denies hematemesis, Denies hematochezia, Denies indigestion, Denies jaundice, Denies lactose intolerance, Denies melena, Denies vomiting Genitourinary: Reports as per HPI Menstruation: Reports as per HPI, Reports postmenopausal Musculoskeletal: Reports as per HPI Integumentary: Reports as per HPI, Denies acne, Denies boils, Denies brittle nails, Denies change in hair/nails, Denies color changes, Denies darkening of skin, Denies depigmentation, Denies dryness, Denies foot/leg ulcers, Denies growths, Denies hirsutism, Denies lesions, Denies onychomycosis, Denies pruritus, Denies rash, Denies sores, Denies striae, Denies unusual bruising, De nies wounds Neurological: Reports as per HPI, Denies aphasia, Denies ataxia, Denies balance difficulties, Denies burning pain, Denies change in mentation, Denies change in smell/taste, Denies change in speech, Denies confusion, Denies convulsions, Denies double vision, Denies gait dysfunction, Denies head injury, Denies headaches, Denies hearing difficulties, Denies lack of coordination, Denies loss of vision, Denies memory loss, Denies migraines, Denies motor disturbance, Denies numbness, Denies paralysis, Denies paresthesias, Denies seizures, Denies sensory deficit, Denies spasticity, Denies syncope, Denies tic, Denies tingling, Denies transient paralysis, Denies tremors, Denies vertigo, Denies weakness, Denies visual changes Psychiatric: Reports as per HPI, Denies anhedonia, Denies anxiety, Denies anxiety attacks, Denies change in appetite, Denies change in libido, Denies change in sleep habits, Denies confusion, Denies depression, Denies difficulty concentrating, Denies disorientation, Denies hallucinations, Denies hopelessness, Denies hypersomnia, Denies insomnia, Denies irritability, Denies memory loss, Denies mood swings, Denies paranoia, Denies sadness/tearfulness, Denies sleep disturbances, Denies suicidal ideation Endocrine: Reports as per HPI, Denies cold intolerance, Denies deepening of the voice, Denies excessive sweating, Denies excessive thirst, Denies fatigue, Denies flushing, Denies heat intolerance, Denies high blood sugars, Denies increase in ring/shoe/hat size, Denies low blood sugars, Denies nocturia, Denies palpitations, Denies polydipsia, Denies polyphagia, Denies polyuria, Denies proptosis, Denies recent glucocorticoid use, Denies thyroid mass, Denies weight change Hematologic/Lymphatic: Reports as per HPI, Denies easy bleeding, Denies easy bruising, Denies lymphadenopathy, Denies lymphedema, Denies thrombophilia Allergic/Immunologic: Reports as per HPI, Denies allergic rhinitis, Denies anaphylaxis, Denies angioedema, Denies gluten intolerance, Denies persistent infections, Denies seasonal allergies, Denies urticaria, Denies wheezing Past Medical History Past Medical History: Diabetes Mellitus, GERD/Reflux, Hyperlipidemia Additional Past Medical History / Comment(s): hx. colon polyps, Schatzki's ring History of Any Multi-Drug Resistant Organisms: None Reported Past Surgical History: Hysterectomy (total) Additional Past Surgical History / Comment(s): rectocele,cystocele repair Past Anesthesia/Blood Transfusion Reactions: No Reported Reaction Smoking Status: Never smoker Past Alcohol Use History: None Reported Past Drug Use History: None Reported - Past Family History Father Family Medical History: Cancer Additional Family Medical History / Comment(s): non hodgkins lymphoma Mother Family Medical History: No Reported History Additional Family Medical History / Comment(s): at 90 [employer] Medications and Allergies Home Medications Medication Instructions Recorded Confirmed Type Omeprazole [PriLOSEC] 20 mg PO 07/10/17 03/14/19 History Simvastatin [Zocor] 20 mg PO 07/10/17 03/14/19 History Ergocalciferol [Vitamin D2] 50,000 unit PO 03/14/19 03/14/19 History Polyethylene Glycol 3350 [Miralax] 17 gm PO 03/14/19 03/14/19 History Repaglinide [Prandin] 1 mg PO AC-BID 03/14/19 03/14/19 History Sennosides [Senokot] 8.6 mg PO 03/14/19 03/14/19 History sitaGLIPtin [Januvia] 100 mg PO 03/14/19 03/14/19 History Allergies Allergy/AdvReac Type Severity Reaction Status Date / Time chlorpromazine AdvReac felt like Verified 03/14/19 18:59 [From Thorazine] skin crawling Physical Exam Vitals: Vital Signs Temp Pulse Pulse Resp BP BP Pulse Ox 03/15/19 07:00 98.1 F 92 20 149/83 100 03/15/19 01:25 98.4 F 85 17 124/70 95 03/14/19 22:00 98.3 F 98 18 134/83 96 03/14/19 21:47 98.3 F 03/14/19 18:28 98.3 F 122 H 18 141/81 98 Intake and Output 03/14/19 03/15/19 03/15/19 22:59 06:59 14:59 Intake Total 950 Balance 950 Intake: Intake, IV Titration 900 Amount Piperacillin-Tazobactam 3 100 .375 gm In Sodium Chloride 0.9% 100 ml @ 25 mls/hr IVPB Q8H JOSEPH Rx#: [id number] Sodium Chloride 0.9% 1, 800 000 ml @ 80 mls/hr IV . [id number] JOSEPH Rx#:[id number] Oral 50 Other: # Voids 1 Weight 78.925 kg - Constitutional General appearance: cooperative, no acute distress, obese - EENT Eyes: anicteric sclerae, EOMI, dentition normal, normal appearance ENT: NA/AT, normal oropharynx - Neck Neck: normal ROM - Respiratory Respiratory: bilateral: CTA, negative: diminished, dullness, rales - Cardiovascular Rhythm: regular Heart sounds: normal: S1, S2 Abnormal Heart Sounds: no systolic murmur, no diastolic murmur, no rub, no S3 Gallop, no S4 Gallop, no click, no other - Gastrointestinal General gastrointestinal: normal bowel sounds, soft - Integumentary Integumentary: decreased turgor, normal - Neurologic Neurologic: CNII-XII intact - Musculoskeletal Musculoskeletal: gait normal, strength equal bilaterally - Psychiatric Psychiatric: A&O x's 3, appropriate affect, intact judgment & insight Results CBC & Chem 7: 03/15/19 06:54 03/15/19 06:54 Labs: Abnormal Lab Results - Last 24 Hours (Table) 03/14/19 03/14/19 03/14/19 Range/Units 18:55 18:55 18:55 WBC 15.6 H (3.8-10.6) k/uL Hgb (11.4-16.0) gm/dL Hct (34.0-46.0) % Neutrophils # 12.5 H (1.3-7.7) k/uL Monocytes # 1.1 H (0-1.0) k/uL Chloride (98-107) mmol/L Carbon Dioxide (22-30) mmol/L Glucose 128 H (74-99) mg/dL POC Glucose (mg/dL) (75-99) mg/dL Plasma Lactic Acid Dread (0.7-2.0) mmol/L Alkaline Phosphatase 141 H (38-126) U/L Total Protein (6.3-8.2) g/dL Albumin (3.5-5.0) g/dL Amylase <30 L (30-110) U/L Urine Appearance Cloudy H (Clear) Urine Protein 1+ H (Negative) Urine Glucose (UA) 2+ H (Negative) Urine WBC 7 H (0-5) /hpf Ur Squamous Epith Cells 13 H (0-4) /hpf Urine Bacteria Few H (None) /hpf Urine Mucus Many H (None) /hpf 03/14/19 03/15/19 03/15/19 Range/Units 18:55 06:54 06:54 WBC 12.2 H (3.8-10.6) k/uL Hgb 11.0 L (11.4-16.0) gm/dL Hct 33.7 L (34.0-46.0) % Neutrophils # 9.8 H (1.3-7.7) k/uL Monocytes # (0-1.0) k/uL Chloride 108 H (98-107) mmol/L Carbon Dioxide 21 L (22-30) mmol/L Glucose 119 H (74-99) mg/dL POC Glucose (mg/dL) (75-99) mg/dL Plasma Lactic Acid Dread 2.3 H* (0.7-2.0) mmol/L Alkaline Phosphatase (38-126) U/L Total Protein 5.9 L (6.3-8.2) g/dL Albumin 2.9 L (3.5-5.0) g/dL Amylase (30-110) U/L Urine Appearance (Clear) Urine Protein (Negative) Urine Glucose (UA) (Negative) Urine WBC (0-5) /hpf Ur Squamous Epith Cells (0-4) /hpf Urine Bacteria (None) /hpf Urine Mucus (None) /hpf 03/15/19 Range/Units 12:11 WBC (3.8-10.6) k/uL Hgb (11.4-16.0) gm/dL Hct (34.0-46.0) % Neutrophils # (1.3-7.7) k/uL Monocytes # (0-1.0) k/uL Chloride (98-107) mmol/L Carbon Dioxide (22-30) mmol/L Glucose (74-99) mg/dL POC Glucose (mg/dL) 128 H (75-99) mg/dL Plasma Lactic Acid Dread (0.7-2.0) mmol/L Alkaline Phosphatase (38-126) U/L Total Protein (6.3-8.2) g/dL Albumin (3.5-5.0) g/dL Amylase (30-110) U/L Urine Appearance (Clear) Urine Protein (Negative) Urine Glucose (UA) (Negative) Urine WBC (0-5) /hpf Ur Squamous Epith Cells (0-4) /hpf Urine Bacteria (None) /hpf Urine Mucus (None) /hpf Laboratory Results WBC 12.2 k/uL (3.8-10.6) H 03/15/19 06:54 RBC 3.85 m/uL (3.80-5.40) 03/15/19 06:54 Hgb 11.0 gm/dL (11.4-16.0) L 03/15/19 06:54 Hct 33.7 % (34.0-46.0) L 03/15/19 06:54 MCV 87.5 fL (80.0-100.0) 03/15/19 06:54 MCH 28.7 pg (25.0-35.0) 03/15/19 06:54 MCHC 32.8 g/dL (31.0-37.0) 03/15/19 06:54 RDW 13.0 % (11.5-15.5) 03/15/19 06:54 Plt Count 329 k/uL (150-450) 03/15/19 06:54 Neutrophils % 80 % 03/15/19 06:54 Lymphocytes % 11 % 03/15/19 06:54 Monocytes % 6 % 03/15/19 06:54 Eosinophils % 1 % 03/15/19 06:54 Basophils % 0 % 03/15/19 06:54 Neutrophils # 9.8 k/uL (1.3-7.7) H 03/15/19 06:54 Lymphocytes # 1.3 k/uL (1.0-4.8) 03/15/19 06:54 Monocytes # 0.8 k/uL (0-1.0) 03/15/19 06:54 Eosinophils # 0.2 k/uL (0-0.7) 03/15/19 06:54 Basophils # 0.0 k/uL (0-0.2) 03/15/19 06:54 PT 10.0 sec (9.0-12.0) 03/15/19 06:54 INR 0.9 (<1.2) 03/15/19 06:54 APTT 23.3 sec (22.0-30.0) 03/15/19 06:54 Sodium 140 mmol/L (137-145) 03/15/19 06:54 Potassium 3.7 mmol/L (3.5-5.1) 03/15/19 06:54 Chloride 108 mmol/L (98-107) H 03/15/19 06:54 Carbon Dioxide 21 mmol/L (22-30) L 03/15/19 06:54 Anion Gap 11 mmol/L 03/15/19 06:54 BUN 9 mg/dL (7-17) 03/15/19 06:54 Creatinine 0.68 mg/dL (0.52-1.04) 03/15/19 06:54 Est GFR (CKD-EPI)AfAm >90 (>60 ml/min/1.73 sqM) 03/15/19 06:54 Est GFR (CKD-EPI)NonAf 89 (>60 ml/min/1.73 sqM) 03/15/19 06:54 Glucose 119 mg/dL (74-99) H 03/15/19 06:54 POC Glucose (mg/dL) 126 mg/dL (75-99) H 03/15/19 14:15 POC Glu Cable Machine Operator ID Marielos Calero 03/15/19 14:15 Lactic Ac Sepsis Rflx Y 03/14/19 19:32 Plasma Lactic Acid Dread 1.2 mmol/L (0.7-2.0) 03/14/19 22:41 Calcium 8.5 mg/dL (8.4-10.2) 03/15/19 06:54 Total Bilirubin 0.7 mg/dL (0.2-1.3) 03/15/19 06:54 AST 23 U/L (14-36) 03/15/19 06:54 ALT 18 U/L (9-52) 03/15/19 06:54 Alkaline Phosphatase 116 U/L (38-126) 03/15/19 06:54 NT-Pro-B Natriuret Pep 204 pg/mL 03/15/19 06:54 Total Protein 5.9 g/dL (6.3-8.2) L 03/15/19 06:54 Albumin 2.9 g/dL (3.5-5.0) L 03/15/19 06:54 Amylase <30 U/L (30-110) L 03/14/19 18:55 Lipase 30 U/L (23-300) 03/14/19 18:55 Urine Color Yellow 03/14/19 18:55 Urine Appearance Cloudy (Clear) H 03/14/19 18:55 Urine pH 6.5 (5.0-8.0) 03/14/19 18:55 Ur Specific [place] 1.017 (1.001-1.035) 03/14/19 18:55 Urine Protein 1+ (Negative) H 03/14/19 18:55 Urine Glucose (UA) 2+ (Negative) H 03/14/19 18:55 Urine Ketones Negative (Negative) 03/14/19 18:55 Urine Blood Negative (Negative) 03/14/19 18:55 Urine Nitrite Negative (Negative) 03/14/19 18:55 Urine Bilirubin Negative (Negative) 03/14/19 18:55 Urine Urobilinogen <2.0 mg/dL (<2.0) 03/14/19 18:55 Ur Leukocyte Esterase Negative (Negative) 03/14/19 18:55 Urine WBC 7 /hpf (0-5) H 03/14/19 18:55 Ur Squamous Epith Cells 13 /hpf (0-4) H 03/14/19 18:55 Urine Bacteria Few /hpf (None) H 03/14/19 18:55 Urine Mucus Many /hpf (None) H 03/14/19 18:55 Stool Occult Blood Negative (Negative) 03/14/19 19:30 Assessment and Plan Plan: 1. Acute diverticulitis with abscess formation, without perforation, patient is underwent laparoscopic drainage of the diverticular abscess on 03/15/2019, by Dr. Mcnamara. There is 2 cm fluid collection compatible with a smile right ovarian cyst, adhesions are noted in the abdominal cavity, the abscess cavity was evacuated and drained and irrigated. And drained. IV antibiotics with Zosyn, IV hydration. Monitor closely. perioperative risk are the following RCRI 0f 0, ASA risk of class II, laparoscopic surgery emergently performed, performed under general anesthesia. Dr torres consul;nelida for infectious disease 2. Diabetes mellitus 2on Januvia, patient will be on a insulin scale, Januvia is on hold 3. Hyperlipidemia, simvastatin on hold, 4. Osteoporosis 5. History of Schatzki's ring 6. History off bladder suspension 7. Ovarian cyst 2 cm, CA-125 to be obtained secondary to age,pt mentions complete hysterectomy but laparoscopic exam showes presence of right ovarian cyst. these needs to be monitored closely outpatient
[2019-03-15] MEDS ORDERED: ANIDULAFUNGIN 200 MG in SODIUM CHLORIDE 0.9% 200 ML IVPB ONE (17:00)
[2019-03-16] MEDS: SODIUM CHLORIDE 0.9% 1,000 ML IV SCH ×2 (00:49→10:51)
[2019-03-16] MEDS: metroNIDAZOLE-NS PMX 500 MG in SALINE 1 100ML.BAG IVPB SCH ×3 (01:55→20:39)
[2019-03-16] MEDS: KETOROLAC 30 MG/ML 1 ML VIAL IVP SCH ×2 (05:35→17:54)
[2019-03-16] MEDS: PIPERACILLIN-TAZOBACTAM 3.375 GM in SODIUM CHLORIDE 0.9% 100 ML IVPB SCH ×3 (05:38→22:47)
[2019-03-16 08:08] LABS: Basophils % (A) 0 %; Eosinophils # (A) 0.2 k/uL (0-0.7); Eosinophils % (A) 2 %; HCT 33.2 % (34.0-46.0); HGB 10.6 gm/dL (11.4-16.0); Lymphocytes # (A) 1.3 k/uL (1.0-4.8); Lymphocytes % (A) 11 %; MCH 28.4 pg (25.0-35.0); MCV 88.6 fL (80.0-100.0); Mean Platelet Volume 7.6; Monocytes # (A) 0.6 k/uL (0-1.0); Monocytes % (A) 5 %; Neutrophils # (A) 9.8 k/uL (1.3-7.7); Neutrophils % (A) 82 %; Platelet Count 303 k/uL (150-450); RBC 3.74 m/uL (3.80-5.40); RDW 13.7 % (11.5-15.5)
[2019-03-16] MEDS: MORPHINE SULFATE 4 MG/ML SYRINGE IV PRN (08:09)
[2019-03-16] MEDS: PANTOPRAZOLE 40 MG TABLET PO SCH (08:09)
[2019-03-16] MEDS: HEPARIN SODIUM,PORCINE 5,000 UNIT/ML 1 ML VIAL SQ SCH ×2 (08:14→17:54)
[2019-03-16] MEDS: ANIDULAFUNGIN 100 MG in SODIUM CHLORIDE 0.9% 100 ML IVPB SCH (08:18)
[2019-03-16 08:23] LABS: African American GFR (CKD) >90 (>60 ml/min/1.73 sqM); Anion Gap 11 mmol/L; Blood Urea Nitrogen 10 mg/dL (7-17); Calcium 8.4 mg/dL (8.4-10.2); Carbon Dioxide 19 mmol/L (22-30); Chloride 109 mmol/L (98-107); Glucose 90 mg/dL (74-99); Potassium 4.1 mmol/L (3.5-5.1); Sodium 139 mmol/L (137-145)
--- NOTE | 2019-03-16 08:40 | P.CONS ---
History of Present Illness - Reason for Consult Consult date: 03/16/19 Pelvic abscess - History of Present Illness This is a 68-year-old female gives history that about 2 weeks ago she felt something was not right in her pelvic area and thought maybe she had a bladder infection and went to see her PCP. Over the weekend, she developed significant lower abdominal pain that Worsening along with chills and bloating and constipation. Patient thought she only had constipation when she came in the hospital. She had one time history of diverticulitis. Patient came into [facility] emergency center for evaluation. She underwent a CAT scan that revealed a 4.5 x 5 cm abscess between the sigmoid colon and bladder. An adjacent smaller 2.5 cm abscess also noted. No free air. Findings consistent with diverticular abscess. The patient underwent a laparoscopic kaitlyn inage of the diverticular abscess with Dr. Heller yesterday afternoon. Bone cultures were obtained. Blood culture showing no growth after 24 hours. She is currently on Anidulafungin, Flagyl and Zosyn. Patient has been started on a clear liquid diet which she is tolerating this morning without nausea or vomiting. She is not passing gas. She states she is more sore today with pain in a #8 out of 10. Pain is located in the right lower quadrant. She does complain of some gastric reflux and is on Protonix. Lion catheter is in place draining clear bethanie urine. The patient is frequently clearing her throat and feels that herSchatzki ring which has been dilated by Dr. Wilcox in the past seems to be irritated. She denies postnasal drainage. Review of Systems All systems: negative Constitutional: Reports chills, Reports fever, Reports poor appetite Eyes: denies blurred vision, denies pain Ears, nose, mouth and throat: Denies dysphagia, Denies headache, Denies nasal congestion, Denies nasal discharge, Denies sore throat Cardiovascular: Denies chest pain, Denies decreased exercise tolerance, Denies dyspnea on exertion, Denies edema, Denies leg edema, Denies shortness of breath, Denies syncope Respiratory: Denies cough, Denies cough with sputum, Denies dyspnea, Denies excessive sputum, Denies hemoptysis, Denies home oxygen, Denies sleep apnea Gastrointestinal: Reports abdominal pain, Reports constipation, Denies diarrhea, Denies nausea, Denies vomiting Genitourinary: Denies dysuria, Denies hematuria, Denies urgency, Denies urinary frequency Musculoskeletal: Denies frequent falls, Denies gait dysfunction, Denies muscle weakness, Denies myalgias Integumentary: Reports wounds, Denies pruritus, Denies rash Neurological: Denies aphasia, Denies change in mentation, Denies change in speech, Denies numbness, Denies seizures, Denies weakness Psychiatric: Denies anxiety, Denies depression Endocrine: Denies fatigue, Denies weight change Past Medical History Past Medical History: Diabetes Mellitus, GERD/Reflux, Hyperlipidemia Additional Past Medical History / Comment(s): hx. colon polyps, Schatzki ring, diverticulitis, diverticular abscess History of Any Multi-Drug Resistant Organisms: None Reported Past Surgical History: Hysterectomy (total) Additional Past Surgical History / Comment(s): rectocele,cystocele repair, Schatzki ring dilatation, laparoscopic drainage of diverticular abscess Past Anesthesia/Blood Transfusion Reactions: No Reported Reaction Smoking Status: Never smoker Past Alcohol Use History: None Reported Additional Past Alcohol Use History / Comment(s): The patient is a lifelong nonsmoker, no illicit drug use, no alcohol use. Patient lives at home with her . There are no pets in the home. 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 Past Drug Use History: None Reported - Past Family History Father Family Medical History: Cancer Additional Family Medical History / Comment(s): non hodgkins lymphoma Mother Family Medical History: No Reported History Additional Family Medical History / Comment(s): at 90 [facility] Medications and Allergies Home Medications Medication Instructions Recorded Confirmed Type Omeprazole [PriLOSEC] 20 mg PO HS 07/10/17 03/14/19 History Simvastatin [Zocor] 20 mg PO HS 07/10/17 03/14/19 History Ergocalciferol [Vitamin D2] 50,000 unit PO TU 03/14/19 03/14/19 History Polyethylene Glycol 3350 [Miralax] 17 gm PO HS 03/14/19 03/14/19 History Repaglinide [Prandin] 1 mg PO AC-BID 03/14/19 03/14/19 History Sennosides [Senokot] 8.6 mg PO HS 06/15/19 06/15/19 History sitaGLIPtin [Januvia] 100 mg PO HS 03/14/19 03/14/19 History Allergies Allergy/AdvReac Type Severity Reaction Status Date / Time chlorpromazine AdvReac felt like Verified 03/14/19 18:59 [From Thorazine] skin crawling Physical Exam Vitals: Vital Signs Temp Pulse Resp BP Pulse Ox 03/16/19 07:05 97.8 F 88 12 129/74 96 03/16/19 01:05 97.4 F L 86 17 125/73 98 03/15/19 18:50 97.7 F 88 17 126/76 97 03/15/19 16:45 78 114/75 03/15/19 16:30 79 115/75 03/15/19 16:15 76 118/78 03/15/19 16:00 79 122/79 03/15/19 15:45 73 124/82 03/15/19 15:30 74 135/83 03/15/19 15:15 73 137/87 03/15/19 15:00 76 143/86 03/15/19 14:45 98.0 F 77 16 143/87 97 03/15/19 14:32 82 16 166/84 96 03/15/19 14:18 86 16 176/84 94 L 03/15/19 14:11 84 192/88 03/15/19 14:02 113 H 16 183/90 95 03/15/19 13:49 99.0 F 120 H 16 160/58 97 Intake and Output 03/15/19 03/16/19 03/16/19 22:59 06:59 14:59 Intake Total 1150 400 Output Total 460 120 Balance -460 1030 400 Intake: Intake, IV Titration 1000 Amount Piperacillin-Tazobactam 3 100 .375 gm In Sodium Chloride 0.9% 100 ml @ 25 mls/hr IVPB Q8H JOSEPH Rx#: [id number] Sodium Chloride 0.9% 1, 800 000 ml @ 80 mls/hr IV . [id number] JOSEPH Rx#:[id number] metroNIDAZOLE-NS PMX 500 100 mg In Saline 1 100ml.bag @ 100 mls/hr IVPB Q8HR JOSEPH Rx#:[id number] Oral 150 400 Output: Drainage 60 20 Abdomen 60 20 Urine 400 100 Other: Voiding Method Indwelling Catheter Gen: This is a 68-year-old female. She is sitting up in bed and appears to be comfortable and in no acute distress. HEENT: Head is atraumatic, normocephalic. Pupils equal, round. Sclerae is anicteric. Oral mucous membranes are moist. Oropharynx without significant erythema or edema. NECK: Supple. No JVD. No lymphadenopathy. No thyromegaly. LUNGS: Clear to auscultation. No wheezes or rhonchi. No intercostal retractions. HEART: Regular rate and rhythm. No murmur. ABDOMEN: Soft. Bowel sounds are present. No masses. Mild tenderness right lower quadrant. Dressing and ZACK drain with serosanguineous fluid the right lower quadrant. Lion catheter draining clear bethanie urine. EXTREMITIES: No pedal edema. No calf tenderness. Dorsalis pedis +2 bilaterally. NEUROLOGICAL: Patient is awake, alert and oriented x3. Cranial nerves 2 through 12 are grossly intact. Results Results: Laboratory Results WBC 12.0 k/uL (3.8-10.6) H 03/16/19 07:04 RBC 3.74 m/uL (3.80-5.40) L 03/16/19 07:04 Hgb 10.6 gm/dL (11.4-16.0) L 03/16/19 07:04 Hct 33.2 % (34.0-46.0) L 03/16/19 07:04 MCV 88.6 fL (80.0-100.0) 03/16/19 07:04 MCH 28.4 pg (25.0-35.0) 03/16/19 07:04 MCHC 32.0 g/dL (31.0-37.0) 03/16/19 07:04 RDW 13.7 % (11.5-15.5) 03/16/19 07:04 Plt Count 303 k/uL (150-450) 03/16/19 07:04 Neutrophils % 82 % 03/16/19 07:04 Lymphocytes % 11 % 03/16/19 07:04 Monocytes % 5 % 03/16/19 07:04 Eosinophils % 2 % 03/16/19 07:04 Basophils % 0 % 03/16/19 07:04 Neutrophils # 9.8 k/uL (1.3-7.7) H 03/16/19 07:04 Lymphocytes # 1.3 k/uL (1.0-4.8) 03/16/19 07:04 Monocytes # 0.6 k/uL (0-1.0) 03/16/19 07:04 Eosinophils # 0.2 k/uL (0-0.7) 03/16/19 07:04 Basophils # 0.0 k/uL (0-0.2) 03/16/19 07:04 PT 10.0 sec (9.0-12.0) 03/15/19 06:54 INR 0.9 (<1.2) 03/15/19 06:54 APTT 23.3 sec (22.0-30.0) 03/15/19 06:54 Sodium 139 mmol/L (137-145) 03/16/19 07:04 Potassium 4.1 mmol/L (3.5-5.1) 03/16/19 07:04 Chloride 109 mmol/L (98-107) H 03/16/19 07:04 Carbon Dioxide 19 mmol/L (22-30) L 03/16/19 07:04 Anion Gap 11 mmol/L 03/16/19 07:04 BUN 10 mg/dL (7-17) 03/16/19 07:04 Creatinine 0.62 mg/dL (0.52-1.04) 03/16/19 07:04 Est GFR (CKD-EPI)AfAm >90 (>60 ml/min/1.73 sqM) 03/16/19 07:04 Est GFR (CKD-EPI)NonAf >90 (>60 ml/min/1.73 sqM) 03/16/19 07:04 Glucose 90 mg/dL (74-99) 03/16/19 07:04 POC Glucose (mg/dL) 126 mg/dL (75-99) H 03/15/19 14:15 POC Glu Seo Team Lead ID Marielos Calero 03/15/19 14:15 Lactic Ac Sepsis Rflx Y 03/14/19 19:32 Plasma Lactic Acid Dread 1.2 mmol/L (0.7-2.0) 03/14/19 22:41 Calcium 8.4 mg/dL (8.4-10.2) 03/16/19 07:04 Total Bilirubin 0.7 mg/dL (0.2-1.3) 03/15/19 06:54 AST 23 U/L (14-36) 03/15/19 06:54 ALT 18 U/L (9-52) 03/15/19 06:54 Alkaline Phosphatase 116 U/L (38-126) 03/15/19 06:54 NT-Pro-B Natriuret Pep 204 pg/mL 03/15/19 06:54 Total Protein 5.9 g/dL (6.3-8.2) L 03/15/19 06:54 Albumin 2.9 g/dL (3.5-5.0) L 03/15/19 06:54 Amylase <30 U/L (30-110) L 03/14/19 18:55 Lipase 30 U/L (23-300) 03/14/19 18:55 Urine Color Yellow 03/14/19 18:55 Urine Appearance Cloudy (Clear) H 03/14/19 18:55 Urine pH 6.5 (5.0-8.0) 03/14/19 18:55 Ur Specific Swink 1.017 (1.001-1.035) 03/14/19 18:55 Urine Protein 1+ (Negative) H 03/14/19 18:55 Urine Glucose (UA) 2+ (Negative) H 03/14/19 18:55 Urine Ketones Negative (Negative) 03/14/19 18:55 Urine Blood Negative (Negative) 03/14/19 18:55 Urine Nitrite Negative (Negative) 03/14/19 18:55 Urine Bilirubin Negative (Negative) 03/14/19 18:55 Urine Urobilinogen <2.0 mg/dL (<2.0) 03/14/19 18:55 Ur Leukocyte Esterase Negative (Negative) 03/14/19 18:55 Urine WBC 7 /hpf (0-5) H 03/14/19 18:55 Ur Squamous Epith Cells 13 /hpf (0-4) H 03/14/19 18:55 Urine Bacteria Few /hpf (None) H 03/14/19 18:55 Urine Mucus Many /hpf (None) H 03/14/19 18:55 Stool Occult Blood Negative (Negative) 03/14/19 19:30 CBC & Chem 7: 03/16/19 07:04 03/16/19 07:04 Labs: Abnormal Lab Results - Last 24 Hours (Table) 03/15/19 03/15/19 03/16/19 Range/Units 12:11 14:15 07:04 WBC 12.0 H (3.8-10.6) k/uL RBC 3.74 L (3.80-5.40) m/uL Hgb 10.6 L (11.4-16.0) gm/dL Hct 33.2 L (34.0-46.0) % Neutrophils # 9.8 H (1.3-7.7) k/uL Chloride (98-107) mmol/L Carbon Dioxide (22-30) mmol/L POC Glucose (mg/dL) 128 H 126 H (75-99) mg/dL 03/16/19 Range/Units 07:04 WBC (3.8-10.6) k/uL RBC (3.80-5.40) m/uL Hgb (11.4-16.0) gm/dL Hct (34.0-46.0) % Neutrophils # (1.3-7.7) k/uL Chloride 109 H (98-107) mmol/L Carbon Dioxide 19 L (22-30) mmol/L POC Glucose (mg/dL) (75-99) mg/dL Microbiology - Last 24 Hours (Table) 03/15/19 13:35 Gram Stain - Preliminary Abdomen Wound Culture - Preliminary 03/15/19 13:35 Anaerobic Culture - Preliminary Abdomen 03/14/19 18:55 Blood Culture - Preliminary Blood No Growth after 24 hours Assessment and Plan Plan: This is a 68-year-old female who presents to hospital with abdominal pain, leukocytosis, fevers with signs of sepsis secondary to a diverticular abscess. Patient is status post laparoscopic drainage of the diverticular abscess. She is currently on anti-microbial agents in the form of Anidulafungin, Flagyl and Zosyn which will be continued. Wound cultures are in progress. Blood cultures showing no growth after 24 hours. Continue supportive care. Further recommendations as patient progresses. The above dictated assessment and findings were discussed with Dr. Ruiz. The impression and plan of care have been directed as dictated. Marina Love nurse practitioner acting as scribe for Dr. Ruiz.
--- NOTE | 2019-03-16 13:27 | P.PN ---
Subjective Progress Note Date: 03/16/19 Principal diagnosis: Diverticular abscess Patient says her pain is improved. No fevers. Cultures pending. Tolerating full liquids. ZACK drain serosanguineous. Objective - Vital Signs Vital signs: Vital Signs Temp 97.8 F 03/16/19 07:05 Pulse 88 03/16/19 07:05 Resp 12 03/16/19 07:05 BP 129/74 03/16/19 07:05 Pulse Ox 96 03/16/19 07:05 Intake & Output 03/15/19 03/16/19 03/16/19 18:59 06:59 18:59 Intake Total 650 1150 400 Output Total 80 580 220 Balance 570 570 180 Intake: IV 650 Intake, IV Titration 1000 Amount Piperacillin-Tazobactam 3 100 .375 gm In Sodium Chloride 0.9% 100 ml @ 25 mls/hr IVPB Q8H JOSEPH Rx#: [id number] Sodium Chloride 0.9% 1, 800 000 ml @ 80 mls/hr IV . [id number] JOSEPH Rx#:[id number] metroNIDAZOLE-NS PMX 500 100 mg In Saline 1 100ml.bag @ 100 mls/hr IVPB Q8HR JOSEPH Rx#:[id number] Oral 150 400 Output: Drainage 80 20 Abdomen 80 20 Urine 75 500 200 Uretheral (Lion) 200 Estimated Blood Loss 5 Other: Voiding Method Indwelling Catheter Indwelling Catheter # Voids 0 - Exam Abdomen: Soft, mild distention, mild tenderness at drain site - Labs CBC & Chem 7: 03/16/19 07:04 03/16/19 07:04 Labs: Abnormal Lab Results - Last 24 Hours (Table) 03/15/19 03/15/19 03/16/19 Range/Units 06:54 14:15 07:04 WBC 12.0 H (3.8-10.6) k/uL RBC 3.74 L (3.80-5.40) m/uL Hgb 10.6 L (11.4-16.0) gm/dL Hct 33.2 L (34.0-46.0) % Neutrophils # 9.8 H (1.3-7.7) k/uL Chloride (98-107) mmol/L Carbon Dioxide (22-30) mmol/L POC Glucose (mg/dL) 126 H (75-99) mg/dL Hemoglobin A1c 8.0 H (4.0-6.0) % 03/16/19 Range/Units 07:04 WBC (3.8-10.6) k/uL RBC (3.80-5.40) m/uL Hgb (11.4-16.0) gm/dL Hct (34.0-46.0) % Neutrophils # (1.3-7.7) k/uL Chloride 109 H (98-107) mmol/L Carbon Dioxide 19 L (22-30) mmol/L POC Glucose (mg/dL) (75-99) mg/dL Hemoglobin A1c (4.0-6.0) % Microbiology - Last 24 Hours (Table) 03/15/19 13:35 Gram Stain - Preliminary Abdomen Wound Culture - Preliminary 03/15/19 13:35 Anaerobic Culture - Preliminary Abdomen 03/14/19 18:55 Blood Culture - Preliminary Blood No Growth after 24 hours Assessment and Plan (1) Colonic diverticular abscess Narrative/Plan: Await final cultures. Continue antibiotics. Advance diet. Remove Lion catheter. Add Toradol for pain control. Current Visit: Yes Status: Acute Code(s): K57.20 - DVTRCLI OF LG INT W PERFORATION AND ABSCESS W/O BLEEDING SNOMED Code(s): 109696325
[2019-03-16] MEDS: INSULIN ASPART (NovoLOG) 100 UNIT/ML VIAL SQ SCH ×3 (13:40→20:59)
--- NOTE | 2019-03-16 15:48 | P.PN ---
Subjective Progress Note Date: 03/16/19 This is a pleasant 68-year-old old lady patient of Dr. Ann. She has underlying history of diverticular disease, admitted to the emergency room secondary to 2 weeks of abdominal pain, and abdominal distention. Patient was evaluated/examined by PCP 2 weeks ago, and as she thought to have a urinary tract infection. She was started on stool softeners as the urine was clean scheduled to have an abdominal US in am, patient has diminished appetite, has chills no fevers, increasing abdominal pain in the lower left lower quadrant area, she was subsequently seen in the emergency room, secondary to acute complex diverticulitis. Emergency room evaluation included a CAT scan of the abdomen and pelvis showing complex diverticulitis with abscess formation, patient was started on IV Zosyn, as white count is 15, and was scheduled to undergo emergent pelvic abscess drainage, we are consulted medically for preop clearance, I have requested an EKG, and a PHP ARCHITECT proBNP, patient was sent down to the operating table without these numbers, she denies any history of CAD no CHF in the past, patient has diabetes mellitus on oral agents, not insulin, no history off underlying kidney disease stage III, no history of CVA in the past. 03/16: Yesterday, patient underwent a laparoscopic drainage of the diverticular abscess with Dr. Heller. Bone cultures were obtained. Blood culture showing no growth after 24 hours. She is currently on Anidulafungin, Flagyl and Zosyn and managed by Dr. Ruiz. Patient has been started on a clear liquid diet which she is tolerating this morning without nausea or vomiting. She is not passing gas. She states she is more sore today with pain in a #8 out of 10. Pain is located in the right lower quadrant. She does complain of some gastric reflux and is on Protonix. Lion catheter is in place draining clear bethanie urine. The patient is frequently clearing her throat and feels that her Schatzki ring which has been dilated by Dr. Wilcox in the past seems to be irritated. She denies postnasal drainage. WBC count is improved to 12, creatinine 0.62. Sodium 139, potassium 4.1, chloride 109, CO2 19. Blood sugars are running between 90 and 128. Patient will be placed on sliding insulin scale for now. She has been afebrile, blood pressure 129/74, pulse ox 96% on room air, heart rate 88. Objective - Vital Signs Vital signs: Vital Signs Temp 97.8 F 03/16/19 07:05 Pulse 88 03/16/19 07:05 Resp 12 03/16/19 07:05 BP 129/74 03/16/19 07:05 Pulse Ox 96 03/16/19 07:05 Intake & Output 03/15/19 03/16/19 03/16/19 18:59 06:59 18:59 Intake Total 650 1150 400 Output Total 80 580 Balance 570 570 400 Intake: IV 650 Intake, IV Titration 1000 Amount Piperacillin-Tazobactam 3 100 .375 gm In Sodium Chloride 0.9% 100 ml @ 25 mls/hr IVPB Q8H JOSEPH Rx#: [id number] Sodium Chloride 0.9% 1, 800 000 ml @ 80 mls/hr IV . [id number] JOSEPH Rx#:[id number] metroNIDAZOLE-NS PMX 500 100 mg In Saline 1 100ml.bag @ 100 mls/hr IVPB Q8HR JOSEPH Rx#:[id number] Oral 150 400 Output: Drainage 80 Abdomen 80 Urine 75 500 Estimated Blood Loss 5 Other: Voiding Method Indwelling Catheter # Voids 0 - Exam Gen: This is a 68-year-old female. She is sitting up in bed and appears to be comfortable and in no acute distress. HEENT: Head is atraumatic, normocephalic. Pupils equal, round. Sclerae is anicteric. Oral mucous membranes are moist. Oropharynx without significant erythema or edema. NECK: Supple. No JVD. No lymphadenopathy. No thyromegaly. LUNGS: Clear to auscultation. No wheezes or rhonchi. No intercostal retractions. HEART: Regular rate and rhythm. No murmur. ABDOMEN: Soft. Bowel sounds are present. No masses. Mild tenderness right lower quadrant. Dressing and ZACK drain with serosanguineous fluid the right lower quadrant. Lion catheter draining clear bethanie urine. EXTREMITIES: No pedal edema. No calf tenderness. Dorsalis pedis +2 bilaterally. NEUROLOGICAL: Patient is awake, alert and oriented x3. Cranial nerves 2 through 12 are grossly intact. - Labs CBC & Chem 7: 03/16/19 07:04 03/16/19 07:04 Labs: Abnormal Lab Results - Last 24 Hours (Table) 06/16/19 06/16/19 06/17/19 Range/Units 12:11 14:15 07:04 WBC 12.0 H (3.8-10.6) k/uL RBC 3.74 L (3.80-5.40) m/uL Hgb 10.6 L (11.4-16.0) gm/dL Hct 33.2 L (34.0-46.0) % Neutrophils # 9.8 H (1.3-7.7) k/uL Chloride (98-107) mmol/L Carbon Dioxide (22-30) mmol/L POC Glucose (mg/dL) 128 H 126 H (75-99) mg/dL 03/16/19 Range/Units 07:04 WBC (3.8-10.6) k/uL RBC (3.80-5.40) m/uL Hgb (11.4-16.0) gm/dL Hct (34.0-46.0) % Neutrophils # (1.3-7.7) k/uL Chloride 109 H (98-107) mmol/L Carbon Dioxide 19 L (22-30) mmol/L POC Glucose (mg/dL) (75-99) mg/dL Microbiology - Last 24 Hours (Table) 03/15/19 13:35 Gram Stain - Preliminary Abdomen Wound Culture - Preliminary 03/15/19 13:35 Anaerobic Culture - Preliminary Abdomen 03/14/19 18:55 Blood Culture - Preliminary Blood No Growth after 24 hours Assessment and Plan Plan: 1. Acute diverticulitis with abscess formation, without perforation, patient has undergone laparoscopic drainage of the diverticular abscess on 03/15/2019, by Dr. Mcnamara. There is 2 cm fluid collection compatible with a smile right ovarian cyst, adhesions are noted in the abdominal cavity, the abscess cavity was evacuated and drained and irrigated. Continue current antimicrobials per Dr. Ruiz. Patient is tolerating clear liquid diet. 2. Diabetes mellitus 2. insulin scale, Januvia is on hold 3. Hyperlipidemia, simvastatin on hold, 4. Osteoporosis 5. History of Schatzki's ring 6. History of bladder suspension 7. Ovarian cyst 2 cm, CA-125 to be obtained secondary to age,pt mentions complete hysterectomy but laparoscopic exam showes presence of right ovarian cyst. these needs to be monitored closely outpatient Discharge plan: Return home Impression and plan of care have been directed as dictated by the signing physician. Marina Love nurse practitioner acting as scribe for signing physician.
[2019-03-16 17:01] LABS: Glucose,Whole Blood 184 mg/dL (75-99)
[2019-03-16] MEDS: HYDROcodone/APAP 5-325MG 1 EACH TAB PO PRN (17:53)
[2019-03-16 20:34] LABS: Glucose,Whole Blood 341 mg/dL (75-99)
[2019-03-17] MEDS: PIPERACILLIN-TAZOBACTAM 3.375 GM in SODIUM CHLORIDE 0.9% 100 ML IVPB SCH ×4 (00:31→23:49)
[2019-03-17] MEDS: KETOROLAC 30 MG/ML 1 ML VIAL IVP SCH ×6 (00:31→23:49)
[2019-03-17] MEDS: HEPARIN SODIUM,PORCINE 5,000 UNIT/ML 1 ML VIAL SQ SCH ×4 (00:31→23:49)
[2019-03-17] MEDS: SODIUM CHLORIDE 0.9% 1,000 ML IV SCH ×3 (00:34→23:50)
--- NOTE | 2019-03-17 00:49 | P.CON ---
Consult Note - . Consult date: 03/16/19 Assessment/Plan:: This is a 68-year-old female gives history that about 2 weeks ago she felt something was not right in her pelvic area and thought maybe she had a bladder infection and went to see her PCP. Over the weekend, she developed sign ificant lower abdominal pain that Worsening along with chills and bloating and constipation. Patient thought she only had constipation when she came in the hospital. She had one time history of diverticulitis. Patient came into [facility] emergency center for evaluation. She underwent a CAT scan that revealed a 4.5 x 5 cm abscess between the sigmoid colon and bladder. An adjacent smaller 2.5 cm abscess also noted. No free air. Findings consistent with diverticular abscess. The patient underwent a laparoscopic drainage of the diverticular abscess with Dr. Heller yesterday afternoon. Wound cultures were obtained. Blood culture showing no growth after 24 hours. She is currently on Anidulafungin, Flagyl and Zosyn. Patient has been started on a clear liquid diet which she is tolerating this morning without nausea or vomiting. She is not passing gas. She states she is more sore today with pain in a #8 out of 10. Pain is located in the right lower quadrant. She does complain of some gastric reflux and is on Protonix. Lion catheter is in place draining clear bethanie urine. The patient is frequently clearing her throat and feels that herSchatzki ring which has been dilated by Dr. Wilcox in the past seems to be irritated. She denies postnasal drainage. Please see the consult note as dictated by nurse practitioner's Mrs. Marina Love Pleasant 68-year-old woman who is status post a laparoscopic intervention to her pelvic abscess. Patient have a consult antifungal therapy was added given the complexity of the infection. Cultures are pending and will further help direct the course of antibiotic therapy discharge. Given the difficulties of the situation and the goal to have resolution of the infection then she can proceed to colonoscopy and possibly colonic resection we'll likely use outpatient intravenous antibiotic therapy. I agree with evaluation, assessment and plan as dictated by nurse practitioner Lianet Marina Love.
[2019-03-17] MEDS: metroNIDAZOLE-NS PMX 500 MG in SALINE 1 100ML.BAG IVPB SCH ×3 (04:40→21:04)
[2019-03-17 07:13] LABS: Glucose,Whole Blood 121 mg/dL (75-99)
[2019-03-17] MEDS: INSULIN ASPART (NovoLOG) 100 UNIT/ML VIAL SQ SCH ×4 (07:13→21:04)
[2019-03-17] MEDS: ANIDULAFUNGIN 100 MG in SODIUM CHLORIDE 0.9% 100 ML IVPB SCH (09:28)
[2019-03-17] MEDS: PANTOPRAZOLE 40 MG TABLET PO SCH (09:28)
[2019-03-17 12:12] LABS: Glucose,Whole Blood 141 mg/dL (75-99)
--- NOTE | 2019-03-17 14:45 | P.PN ---
Subjective Progress Note Date: 03/17/19 This is a pleasant 68-year-old old lady patient of Dr. Ann. She has underlying history of diverticular disease, admitted to the emergency room secondary to 2 weeks of abdominal pain, and abdominal distention. Patient was evaluated/examined by PCP 2 weeks ago, and as she thought to have a urinary tract infection. She was started on stool softeners as the urine was clean scheduled to have an abdominal US in am, patient has diminished appetite, has chills no fevers, increasing abdominal pain in the lower left lower quadrant area, she was subsequently seen in the emergency room, secondary to acute complex diverticulitis. Emergency room evaluation included a CAT scan of the abdomen and pelvis showing complex diverticulitis with abscess formation, patient was started on IV Zosyn, as white count is 15, and was scheduled to undergo emergent pelvic abscess drainage, we are consulted medically for preop clearance, I have requested an EKG, and a [employer] proBNP, patient was sent down to the operating table without these numbers, she denies any history of CAD no CHF in the past, patient has diabetes mellitus on oral agents, not insulin, no history off underlying kidney disease stage III, no history of CVA in the past. 03/16: Yesterday, patient underwent a laparoscopic drainage of the diverticular abscess with Dr. Heller. Bone cultures were obtained. Blood culture showing no growth after 24 hours. She is currently on Anidulafungin, Flagyl and Zosyn and managed by Dr. Ruiz. Patient has been started on a clear liquid diet which she is tolerating this morning without nausea or vomiting. She is not passing gas. She states she is more sore today with pain in a #8 out of 10. Pain is located in the right lower quadrant. She does complain of some gastric reflux and is on Protonix. Lion catheter is in place draining clear bethanie urine. The patient is frequently clearing her throat and feels that her Schatzki ring which has been dilated by Dr. Wilcox in the past seems to be irritated. She denies postnasal drainage. WBC count is improved to 12, creatinine 0.62. Sodium 139, potassium 4.1, chloride 109, CO2 19. Blood sugars are running between 90 and 128. Patient will be placed on sliding insulin scale for now. She has been afebrile, blood pressure 129/74, pulse ox 96% on room air, heart rate 88. 6/18: Patient has been evaluated by Dr. Ruiz with recommendations that patient will require outpatient IV antibiotics. Blood cultures showing no growth at 48 hours and we will plan to order line placement today in preparation for possible discharge in the next 24-48 hours. The patient states she did not sleep well last night but normally does not sleep well on a regular basis. She states she is tired and she wants to get shower today. She is taking [place] and Toradol for pain control currently pain is #7 but mostly soreness. She is currently on a low fiber diet. She has passed gas without a bowel movement. Hemoglobin A1c came back at 8, there will be ordered for the patient by case management. Patient has been afebrile, heart rate 91, blood pressure 183/77, pulse ox 97% on room air. CA-125 is 6.5. Objective - Vital Signs Vital signs: Vital Signs Temp 97.5 F L 03/17/19 07:10 Pulse 91 03/17/19 07:10 Resp 18 03/17/19 07:10 BP 183/77 03/17/19 07:10 Pulse Ox 97 03/17/19 07:10 Intake & Output 03/16/19 03/17/19 03/17/19 18:59 06:59 18:59 Intake Total 2270 640 Output Total 390 1105 Balance 1880 -465 Intake: Intake, IV Titration 820 640 Amount Anidulafungin 100 mg In 100 Sodium Chloride 0.9% 100 ml @ 84 mls/hr IVPB DAILY [facility] Rx#:[id number] Piperacillin-Tazobactam 3 100 .375 gm In Sodium Chloride 0.9% 100 ml @ 25 mls/hr IVPB Q8H [facility] Rx#: [id number] Sodium Chloride 0.9% 1, 520 640 000 ml @ 80 mls/hr IV . [id number] [facility] Rx#:[id number] metroNIDAZOLE-NS PMX 500 100 mg In Saline 1 100ml.bag @ 100 mls/hr IVPB Q8HR [facility] Rx#:[id number] Oral 1450 0 Output: Drainage 40 30 Abdomen 40 30 Urine 350 1075 Uretheral (Lion) 200 Other: Voiding Method Indwelling Catheter Toilet # Voids 1 - Exam Gen: This is a 68-year-old female. She is sitting up in bed and appears to be comfortable and in no acute distress. HEENT: Head is atraumatic, normocephalic. Pupils equal, round. Sclerae is anicteric. Oral mucous membranes are moist. Oropharynx without significant erythema or edema. NECK: Supple. No JVD. No lymphadenopathy. No thyromegaly. LUNGS: Clear to auscultation. No wheezes or rhonchi. No intercostal retractions. HEART: Regular rate and rhythm. No murmur. ABDOMEN: Soft. Bowel sounds are present. No masses. Mild tenderness right lower quadrant. Dressingin place. ZACK drain with serosanguineous fluid the right lower quadrant. Lion catheter draining clear bethanie urine. EXTREMITIES: No pedal edema. No calf tenderness. Dorsalis pedis +2 bilaterally. NEUROLOGICAL: Patient is awake, alert and oriented x3. Cranial nerves 2 through 12 are grossly intact. - Labs CBC & Chem 7: 03/16/19 07:04 03/16/19 07:04 Labs: Abnormal Lab Results - Last 24 Hours (Table) 03/15/19 03/16/19 03/16/19 Range/Units 06:54 17:00 20:33 POC Glucose (mg/dL) 184 H 341 H (75-99) mg/dL Hemoglobin A1c 8.0 H (4.0-6.0) % 03/17/19 Range/Units 07:02 POC Glucose (mg/dL) 121 H (75-99) mg/dL Hemoglobin A1c (4.0-6.0) % Microbiology - Last 24 Hours (Table) 03/14/19 18:55 Blood Culture - Preliminary Blood No Growth after 48 hours 03/15/19 13:35 Gram Stain - Preliminary Abdomen Wound Culture - Preliminary Strep agalactiae - (group b) Gram Neg Bacilli Assessment and Plan Plan: 1. Acute diverticulitis with abscess formation, without perforation, patient has undergone laparoscopic drainage of the diverticular abscess on 03/15/2019, by Dr. Mcnamara. There is 2 cm fluid collection compatible with a smile right ovarian cyst, adhesions are noted in the abdominal cavity, the abscess cavity was evacuated and drained and irrigated. Continue current antimicrobials per Dr. Ruiz. Diet has been advanced to a low fiber consistent carb. Dr. Ruiz is planning for IV antibiotic therapy after discharge. Line placement will be ordered for today. 2. Diabetes mellitus 2. insulin scale, Januvia is on hold. Glucometer ordered for home. A1c 8 3. Hyperlipidemia, simvastatin on hold, 4. Osteoporosis 5. History of Schatzki's ring 6. History of bladder suspension 7. Ovarian cyst 2 cm, status post complete hysterectomy but laparoscopic exam shows presence of right ovarian cyst. Monitored closely as outpatient. Discharge plan: Return home Impression and plan of care have been directed as dictated by the signing physician. Marina Love nurse practitioner acting as scribe for signing physician.
--- NOTE | 2019-03-17 16:15 | P.PN ---
Subjective Progress Note Date: 03/17/19 Principal diagnosis: Diverticular abscess Patient remains anxious about her hospitalization. Her pain is improved. Drain is serosanguineous. She is afebrile. No CBC from today. Was evaluated by infectious disease who is strongly considering outpatient IV antibiotics. Objective - Vital Signs Vital signs: Vital Signs Temp 97.9 F 03/17/19 14:47 Pulse 91 03/17/19 15:25 Resp 18 03/17/19 15:25 BP 146/74 03/17/19 14:47 Pulse Ox 95 03/17/19 14:47 Intake & Output 03/16/19 03/17/19 03/17/19 18:59 06:59 18:59 Intake Total 2270 640 Output Total 390 1105 1330 Balance 1880 -465 -1330 Intake: Intake, IV Titration 820 640 Amount Anidulafungin 100 mg In 100 Sodium Chloride 0.9% 100 ml @ 84 mls/hr IVPB DAILY [facility] Rx#:[id number] Piperacillin-Tazobactam 3 100 .375 gm In Sodium Chloride 0.9% 100 ml @ 25 mls/hr IVPB Q8H [facility] Rx#: [id number] Sodium Chloride 0.9% 1, 520 640 000 ml @ 80 mls/hr IV . [id number] [facility] Rx#:[id number] metroNIDAZOLE-NS PMX 500 100 mg In Saline 1 100ml.bag @ 100 mls/hr IVPB Q8HR [facility] Rx#:[id number] Oral 1450 0 Output: Drainage 40 30 50 Abdomen 40 30 50 Urine 350 1075 1280 Uretheral (Lion) 200 Other: Voiding Method Indwelling Catheter Toilet Toilet # Voids 1 - Exam Abdomen: Soft, nondistended, mild tenderness, drain intact - Labs CBC & Chem 7: 03/16/19 07:04 03/16/19 07:04 Labs: Abnormal Lab Results - Last 24 Hours (Table) 03/16/19 03/16/19 03/17/19 Range/Units 17:00 20:33 07:02 POC Glucose (mg/dL) 184 H 341 H 121 H (75-99) mg/dL 03/17/19 Range/Units 12:00 POC Glucose (mg/dL) 141 H (75-99) mg/dL Microbiology - Last 24 Hours (Table) 03/14/19 18:55 Blood Culture - Preliminary Blood No Growth after 48 hours 03/15/19 13:35 Gram Stain - Preliminary Abdomen Wound Culture - Preliminary Strep agalactiae - (group b) Gram Neg Bacilli Assessment and Plan (1) Colonic diverticular abscess Narrative/Plan: Continue antibiotics. Hopefully can decide early tomorrow regarding possible PICC line placement. Consult will be placed to interventional radiology for that if required. Continue low fiber diet. Current Visit: Yes Status: Acute Code(s): K57.20 - DVTRCLI OF LG INT W PERFORATION AND ABSCESS W/O BLEEDING SNOMED Code(s): 182690397
[2019-03-17 16:46] LABS: Glucose,Whole Blood 168 mg/dL (75-99)
[2019-03-17 20:28] LABS: Glucose,Whole Blood 155 mg/dL (75-99)
--- NOTE | 2019-03-18 01:11 | P.PN ---
Subjective Progress Note Date: 03/17/19 This is a 68-year-old female gives history that about 2 weeks ago she felt something was not right in her pelvic area and thought maybe she had a bladder infection and went to see her PCP. Over the weekend, she developed significant lower abdominal pain that Worsening along with chills and bloating and constipation. Patient thought she only had constipation when she came in the hospital. She had one time history of diverticulitis. Patient came into [facility] emergency center for evaluation. She underwent a CAT scan that revealed a 4.5 x 5 cm abscess between the sigmoid colon and bladder. An adjacent smaller 2.5 cm abscess also noted. No free air. Findings consistent with diverticular abscess. The patient underwent a laparoscopic drainage of the diverticular abscess with Dr. Heller yesterday afternoon. Bone cultures were obtained. Blood culture showing no growth after 24 hours. She is currently on Anidulafungin, Flagyl and Zosyn. Patient has been started on a clear liquid diet which she is tolerating this morning without nausea or vomiting. She is not passing gas. She states she is more sore today with pain in a #8 out of 10. Pain is located in the right lower quadrant. She does complain of some gastric reflux and is on Protonix. Lion catheter is in place draining clear bethanie urine. The patient is frequently clearing her throat and feels that herSchatzki ring which has been dilated by Dr. Wilcox in the past seems to be irritated. She denies postnasal drainage. 03/17/2019 patient is Started to feel somewhat better. The abdominal pain is improving. Reflux is improved. Throat discomfort is improving. Denies fevers or chills. Objective - Vital Signs Vital signs: Vital Signs Temp 97.9 F 03/18/19 00:52 Pulse 87 03/18/19 00:52 Resp 18 03/18/19 00:52 BP 149/83 03/18/19 00:52 Pulse Ox 96 03/18/19 00:52 Intake & Output 03/17/19 03/17/19 03/18/19 06:59 18:59 06:59 Intake Total 640 Output Total 1106 1830 57 Balance -465 -1830 -25 Intake: Intake, IV Titration 640 Amount Sodium Chloride 0.9% 1, 640 000 ml @ 80 mls/hr IV . [id number] [facility] Rx#:[id number] Oral 0 Output: Drainage 30 50 25 Abdomen 30 50 25 Urine 1075 1780 Other: Voiding Method Toilet Toilet # Voids 1 4 - Exam Gen: This is a 68-year-old female. She is sitting up in bed and appears to be comfortable and in no acute distress. HEENT: Head is atraumatic, normocephalic. Pupils equal, round. Sclerae is anicteric. Oral mucous membranes are moist. Oropharynx without significant erythema or edema. NECK: Supple. No JVD. No lymphadenopathy. No thyromegaly. LUNGS: Clear to auscultation. No wheezes or rhonchi. No intercostal retractions. HEART: Regular rate and rhythm. No murmur. ABDOMEN: Soft. Bowel sounds are present. No masses. Mild tenderness right lower quadrant. Dressing and ZACK drain with serosanguineous fluid the right lower james drant. Lion catheter draining clear bethanie urine. EXTREMITIES: No pedal edema. No calf tenderness. Dorsalis pedis +2 bilaterally. NEUROLOGICAL: Patient is awake, alert and oriented x3 - Labs CBC & Chem 7: 03/16/19 07:04 03/16/19 07:04 Labs: Abnormal Lab Results - Last 24 Hours (Table) 03/17/19 03/17/19 03/17/19 Range/Units 07:02 12:00 16:34 POC Glucose (mg/dL) 121 H 141 H 168 H (75-99) mg/dL 03/17/19 Range/Units 20:15 POC Glucose (mg/dL) 155 H (75-99) mg/dL Microbiology - Last 24 Hours (Table) 03/14/19 18:55 Blood Culture - Preliminary Blood No Growth after 72 hours 03/15/19 13:35 Gram Stain - Final Abdomen Wound Culture - Final Strep agalactiae - (group b) Escherichia coli Laboratory Results WBC 12.0 k/uL (3.8-10.6) H 03/16/19 07:04 RBC 3.74 m/uL (3.80-5.40) L 03/16/19 07:04 Hgb 10.6 gm/dL (11.4-16.0) L 03/16/19 07:04 Hct 33.2 % (34.0-46.0) L 03/16/19 07:04 MCV 88.6 fL (80.0-100.0) 03/16/19 07:04 MCH 28.4 pg (25.0-35.0) 03/16/19 07:04 MCHC 32.0 g/dL (31.0-37.0) 03/16/19 07:04 RDW 13.7 % (11.5-15.5) 03/16/19 07:04 Plt Count 303 k/uL (150-450) 03/16/19 07:04 Neutrophils % 82 % 03/16/19 07:04 Lymphocytes % 11 % 03/16/19 07:04 Monocytes % 5 % 03/16/19 07:04 Eosinophils % 2 % 03/16/19 07:04 Basophils % 0 % 03/16/19 07:04 Neutrophils # 9.8 k/uL (1.3-7.7) H 03/16/19 07:04 Lymphocytes # 1.3 k/uL (1.0-4.8) 03/16/19 07:04 Monocytes # 0.6 k/uL (0-1.0) 03/16/19 07:04 Eosinophils # 0.2 k/uL (0-0.7) 03/16/19 07:04 Basophils # 0.0 k/uL (0-0.2) 03/16/19 07:04 PT 10.0 sec (9.0-12.0) 03/15/19 06:54 INR 0.9 (<1.2) 03/15/19 06:54 APTT 23.3 sec (22.0-30.0) 03/15/19 06:54 Sodium 139 mmol/L (137-145) 03/16/19 07:04 Potassium 4.1 mmol/L (3.5-5.1) 03/16/19 07:04 Chloride 109 mmol/L (98-107) H 03/16/19 07:04 Carbon Dioxide 19 mmol/L (22-30) L 03/16/19 07:04 Anion Gap 11 mmol/L 03/16/19 07:04 BUN 10 mg/dL (7-17) 03/16/19 07:04 Creatinine 0.62 mg/dL (0.52-1.04) 03/16/19 07:04 Est GFR (CKD-EPI)AfAm >90 (>60 ml/min/1.73 sqM) 03/16/19 07:04 Est GFR (CKD-EPI)NonAf >90 (>60 ml/min/1.73 sqM) 03/16/19 07:04 Glucose 90 mg/dL (74-99) 03/16/19 07:04 POC Glucose (mg/dL) 155 mg/dL (75-99) H 03/17/19 20:15 POC Glu Conventions Assistant Claribel Aranda 03/17/19 20:[address] Glu mg/dL 183 03/15/19 06:54 Hemoglobin A1c 8.0 % (4.0-6.0) H 03/15/19 06:54 Lactic Ac Sepsis Rflx Y 03/14/19 19:32 Plasma Lactic Acid Dread 1.2 mmol/L (0.7-2.0) 03/14/19 22:41 Calcium 8.4 mg/dL (8.4-10.2) 03/16/19 07:04 Total Bilirubin 0.7 mg/dL (0.2-1.3) 03/15/19 06:54 AST 23 U/L (14-36) 03/15/19 06:54 ALT 18 U/L (9-52) 03/15/19 06:54 Alkaline Phosphatase 116 U/L (38-126) 03/15/19 06:54 NT-Pro-B Natriuret Pep 204 pg/mL 03/15/19 06:54 Total Protein 5.9 g/dL (6.3-8.2) L 03/15/19 06:54 Albumin 2.9 g/dL (3.5-5.0) L 03/15/19 06:54 Amylase <30 U/L (30-110) L 03/14/19 18:55 Lipase 30 U/L (23-300) 03/14/19 18:55 CA 125 Antigen 6.5 U/mL (0.0-30.1) 03/16/19 07:04 Urine Color Yellow 03/14/19 18:55 Urine Appearance Cloudy (Clear) H 03/14/19 18:55 Urine pH 6.5 (5.0-8.0) 03/14/19 18:55 Ur Specific [place] 1.017 (1.001-1.035) 03/14/19 18:55 Urine Protein 1+ (Negative) H 03/14/19 18:55 Urine Glucose (UA) 2+ (Negative) H 03/14/19 18:55 Urine Ketones Negative (Negative) 03/14/19 18:55 Urine Blood Negative (Negative) 03/14/19 18:55 Urine Nitrite Negative (Negative) 03/14/19 18:55 Urine Bilirubin Negative (Negative) 03/14/19 18:55 Urine Urobilinogen <2.0 mg/dL (<2.0) 03/14/19 18:55 Ur Leukocyte Esterase Negative (Negative) 03/14/19 18:55 Urine WBC 7 /hpf (0-5) H 03/14/19 18:55 Ur Squamous Epith Cells 13 /hpf (0-4) H 03/14/19 18:55 Urine Bacteria Few /hpf (None) H 03/14/19 18:55 Urine Mucus Many /hpf (None) H 03/14/19 18:55 Stool Occult Blood Negative (Negative) 03/14/19 19:30 Microbiology 03/14/19 18:55 Blood Blood Culture - Preliminary No Growth after 72 hours 03/15/19 13:35 Abdomen Gram Stain - Final 03/15/19 13:35 Abdomen Wound Culture - Final Strep agalactiae - (group b) Escherichia coli 03/15/19 13:35 Abdomen Anaerobic Culture - Preliminary Assessment and Plan (1) Diverticulitis of large intestine with complication Narrative/Plan: Pleasant 68-year-old woman who is status post a laparoscopic intervention to her pelvic abscess. Patient have a consult antifungal therapy was added given the complexity of the infection. Cultures are pending and will further help direct the course of antibiotic therapy discharge. Given the difficulties of the situation and the goal to have resolution of the infection then she can proceed to colonoscopy and possibly colonic resection we'll likely use outpatient in travenous antibiotic therapy. 03/17/2019 [place] patient to be feeling somewhat better. We have asked for a midline catheter in a couple of weeks of outpatient changes antibiotic therapy to allow improvement of the significant infectious process intra-abdominally from her diverticulitis. Then outpatient evaluations will continue until she has the resection of the involved site. Her leukocytosis is improved. Pain is improving. Cultures in process. We've asked for evaluation of [place]. Current Visit: Yes Status: Acute Code(s): K57.32 - DVTRCLI OF LG INT W/O PERFORATION OR ABSCESS W/O BLEEDING SNOMED Code(s): 868603541 (2) Leukocytosis Current Visit: Yes Status: Acute Code(s): D72.829 - ELEVATED WHITE BLOOD CELL COUNT, UNSPECIFIED SNOMED Code(s): 296677443
[2019-03-18] MEDS: SODIUM CHLORIDE 0.9% 1,000 ML IV SCH (04:22)
[2019-03-18] MEDS: metroNIDAZOLE-NS PMX 500 MG in SALINE 1 100ML.BAG IVPB SCH ×3 (04:22→20:03)
[2019-03-18] MEDS: KETOROLAC 30 MG/ML 1 ML VIAL IVP SCH ×2 (05:42→12:20)
[2019-03-18 06:57] LABS: Glucose,Whole Blood 122 mg/dL (75-99)
[2019-03-18 08:21] LABS: Basophils % (A) 0 %; Eosinophils # (A) 0.3 k/uL (0-0.7); Eosinophils % (A) 3 %; HCT 33.8 % (34.0-46.0); HGB 10.9 gm/dL (11.4-16.0); Lymphocytes # (A) 1.6 k/uL (1.0-4.8); Lymphocytes % (A) 18 %; MCH 28.3 pg (25.0-35.0); MCHC 32.3 g/dL (31.0-37.0); MCV 87.6 fL (80.0-100.0); Mean Platelet Volume 7.3; Monocytes # (A) 0.5 k/uL (0-1.0); Monocytes % (A) 6 %; Neutrophils # (A) 6.6 k/uL (1.3-7.7); Neutrophils % (A) 72 %; Platelet Count 424 k/uL (150-450); RBC 3.86 m/uL (3.80-5.40); RDW 13.5 % (11.5-15.5); WBC 9.3 k/uL (3.8-10.6)
[2019-03-18 08:34] LABS: African American GFR (CKD) >90 (>60 ml/min/1.73 sqM); Anion Gap 12 mmol/L; Blood Urea Nitrogen 4 mg/dL (7-17); Calcium 8.6 mg/dL (8.4-10.2); Carbon Dioxide 22 mmol/L (22-30); Chloride 107 mmol/L (98-107); Glucose 118 mg/dL (74-99); Potassium 3.6 mmol/L (3.5-5.1); Sodium 141 mmol/L (137-145)
[2019-03-18] MEDS: INSULIN ASPART (NovoLOG) 100 UNIT/ML VIAL SQ SCH ×4 (09:33→21:46)
[2019-03-18] MEDS: ANIDULAFUNGIN 100 MG in SODIUM CHLORIDE 0.9% 100 ML IVPB SCH (09:41)
[2019-03-18] MEDS: HEPARIN SODIUM,PORCINE 5,000 UNIT/ML 1 ML VIAL SQ SCH ×2 (09:46→15:39)
[2019-03-18] MEDS: PANTOPRAZOLE 40 MG TABLET PO SCH (09:46)
[2019-03-18 11:21] LABS: Glucose,Whole Blood 139 mg/dL (75-99)
[2019-03-18] MEDS: ERTAPENEM 1 GM in SODIUM CHLORIDE 0.9% 50 ML IVPB SCH (12:17)
[2019-03-18] MEDS: PIPERACILLIN-TAZOBACTAM 3.375 GM in SODIUM CHLORIDE 0.9% 100 ML IVPB SCH (13:15)
--- NOTE | 2019-03-18 14:07 | P.PN ---
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 Ann. She has underlying history of diverticular disease, admitted to the emergency room secondary to 2 weeks of abdominal pain, and abdominal distention. Patient was evaluated/examined by PCP 2 weeks ago, and as she thought to have a urinary tract infection. She was started on stool softeners as the urine was clean scheduled to have an abdominal US in am, patient has diminished appetite, has chills no fevers, increasing abdominal pain in the lower left lower quadrant area, she was subsequently seen in the emergency room, secondary to acute complex diverticulitis. 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 03/16: Yesterday, patient underwent a laparoscopic drainage of the diverticular abscess with Dr. Heller. Bone cultures were obtained. Blood culture showing no growth after 24 hours. She is currently on Anidulafungin, Flagyl and Zosyn and managed by Dr. Ruiz. Patient has been started on a clear liquid diet which she is tolerating this morning without nausea or vomiting. She is not passing gas. She states she is more sore today with pain in a #8 out of 10. Pain is located in the right lower quadrant. She does complain of some gastric reflux and is on Protonix. Lion catheter is in place draining clear bethanie urine. The patient is frequently clearing her throat and feels that her Schatzki ring which has been dilated by Dr. Wilcox in the past seems to be irritated. She denies postnasal drainage. WBC count is improved to 12, creatinine 0.62. Sodium 139, potassium 4.1, chloride 109, CO2 19. Blood sugars are running between 90 and 128. Patient will be placed on sliding insulin scale for now. She has been afebrile, blood pressure 129/74, pulse ox 96% on room air, heart rate 88. 03/17: Patient has been evaluated by Dr. Ruiz with recommendations that patient will require outpatient IV antibiotics. Blood cultures showing no growth at 48 hours and we will plan to order line placement today in preparation for possible discharge in the next 24-48 hours. The patient states she did not sleep well last night but normally does not sleep well on a regular basis. She states she is tired and she wants to get shower today. She is taking Thousandsticks and Toradol for pain control currently pain is #7 but mostly soreness. She is currently on a low fiber diet. She has passed gas without a bowel movement. Hemoglobin A1c came back at 8, there will be ordered for the patient by case management. Patient has been afebrile, heart rate 91, blood pressure 183/77, pulse ox 97% on room air. CA-125 is 6.5. 03/18: Patient is doing well pain is under better control she is having bowel movement and diet was slightly titrated. Her culture was positive and Dr. Ruiz inpatient regularly will be on IV antibiotics for total of 2 weeks patient will be going for PICC line prepare for her discharge in the next 24-[address] segura and if recovering from the current abscess and infection with well patient might be back to have surgery sometime in 6-8 weeks. Objective - Vital Signs Vital signs: Vital Signs Temp 97.9 F 03/18/19 07:00 Pulse 89 03/18/19 08:00 Resp 16 03/18/19 08:00 BP 163/87 03/18/19 07:00 Pulse Ox 97 03/18/19 07:00 Intake & Output 03/17/19 03/18/19 03/18/19 18:59 06:59 18:59 Intake Total 100 Output Total 1830 25 Balance -1830 75 Intake: Intake, IV Titration 100 Amount metroNIDAZOLE-NS PMX 500 100 mg In Saline 1 100ml.bag @ 100 mls/hr IVPB Q8H [facility] Rx#:[id number] Output: Drainage 50 25 Abdomen 50 25 Urine 1780 Other: Voiding Method Toilet Toilet Toilet # Voids 4 8 - Exam CONSTITUTIONAL: Well-developed no acute respiratory distress. EYES: No icterus sclerae, no conjunctivitis. EARS, NOSE, MOUTH, THROAT, and FACE: No sore throat, lymphadenopathy, carotid bruits or deformity. RESPIRATORY: No SOB cough or wheezes. CARDIOVASCULAR: No CP, Palpitation, PND, Orthopnea, or angina. GASTROINTESTINAL: Positive abdominal pain still have drainage tube on the right side slight discomfort with no sign of bleeding. No nausea or vomiting. GENITOURINARY: Negative for Hematuria or UTI, no kidney stones. INTEGUMENT/BREAST: Negative for any muscular injury with mild osteoarthritis.. HEMATOLOGIC/LYMPHATIC: Negative for bleed or purpura. MUSCULOSKELTAL: Negative for Myalgia or arthralgia. NEURLOGICAL: No LOC, Sz or syncope, blurred vision dizziness or abnormality.. BEHAVIORAL/PSYCH: Negative. ENDOCRINE: Negative. - Exam Gen: This is a 68-year-old female. She is sitting up in bed and appears to be comfortable and in no acute distress. HEENT: Head is atraumatic, normocephalic. Pupils equal, round. Sclerae is anicteric. Oral mucous membranes are moist. Oropharynx without significant erythema or edema. NECK: Supple. No JVD. No lymphadenopathy. No thyromegaly. LUNGS: Clear to auscultation. No wheezes or rhonchi. No intercostal retractions. HEART: Regular rate and rhythm. No murmur. ABDOMEN: Soft. Bowel sounds are present. No masses. Mild tenderness right lower quadrant. Dressingin place. ZACK drain with serosanguineous fluid the right lower quadrant. Lion catheter draining clear bethanie urine. EXTREMITIES: No pedal edema. No calf tenderness. Dorsalis pedis +2 bilaterally. NEUROLOGICAL: Patient is awake, alert and oriented x3. Cranial nerves 2 through 12 are grossly intact. - Labs CBC & Chem 7: 03/18/19 07:19 03/18/19 07:19 Labs: Abnormal Lab Results - Last 24 Hours (Table) 03/17/19 03/17/19 03/18/19 Range/Units 16:34 20:15 06:56 Hgb (11.4-16.0) gm/dL Hct (34.0-46.0) % BUN (7-17) mg/dL Glucose (74-99) mg/dL POC Glucose (mg/dL) 168 H 155 H 122 H (75-99) mg/dL 03/18/19 03/18/19 03/18/19 Range/Units 07:19 07:19 11:20 Hgb 10.9 L (11.4-16.0) gm/dL Hct 33.8 L (34.0-46.0) % BUN 4 L (7-17) mg/dL Glucose 118 H (74-99) mg/dL POC Glucose (mg/dL) 139 H (75-99) mg/dL Microbiology - Last 24 Hours (Table) 03/14/19 18:55 Blood Culture - Preliminary Blood No Growth after 72 hours 03/15/19 13:35 Gram Stain - Final Abdomen Wound Culture - Final Strep agalactiae - (group b) Escherichia coli Assessment and Plan Plan: 1 acute diverticulitis with abscess formation: Post drainage patient still have drainage tube, still on IV antibiotics with significant finding so far but has been recovering nicely will be on IV antibiotic for total of 2 weeks associated the hospital. 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 3 type 2 diabetes: Has been on Prandin and Januvia patient is on insulin currently we'll continue short-acting insulin before meals meals patient be trained for it and supported through her A1c has an outpatient was only 6.7 despite being a this time most likely the effect of the inflammation the infection and severity of the abdominal pain. 4 hyperlipidemia: Continue simvastatin. 5 UTI: Remain on antibiotics patient will be switched to ertapenem. 6 severe GERD: Patient remain on pantoprazole in the hospital. CODE STATUS: Full code. Discharge instruction: Patient might be discharge tomorrow or day after tomorrow.
[2019-03-18] MEDS: HYDROcodone/APAP 5-325MG 1 EACH TAB PO PRN ×2 (15:37→20:09)
[2019-03-18 16:12] LABS: Glucose,Whole Blood 244 mg/dL (75-99)
--- NOTE | 2019-03-18 19:17 | P.PN ---
Subjective Progress Note Date: 03/18/19 Principal diagnosis: Diverticular abscess Patient doing well today. Pain is improved. Tolerating diet. Passing flatus. No nausea or vomiting. Drain serosanguineous. Objective - Vital Signs Vital signs: Vital Signs Temp 97.7 F 03/18/19 14:52 Pulse 92 03/18/19 14:52 Resp 18 03/18/19 14:52 BP 138/86 03/18/19 14:52 Pulse Ox 95 03/18/19 14:52 Intake & Output 03/18/19 03/18/19 03/19/19 06:59 18:59 06:59 Intake Total 100 370 Output Total 25 10 Balance 75 360 Intake: Intake, IV Titration 100 150 Amount Anidulafungin 100 mg In 100 Sodium Chloride 0.9% 100 ml @ 84 mls/hr IVPB DAILY [facility] Rx#:[id number] Ertapenem 1 gm In Sodium 50 Chloride 0.9% 50 ml @ 100 mls/hr IVPB DAILY [facility] Rx #:[id number] metroNIDAZOLE-NS PMX 500 100 mg In Saline 1 100ml.bag @ 100 mls/hr IVPB Q8H [facility] Rx#:[id number] Oral 220 Output: Drainage 25 10 Abdomen 25 10 Other: Voiding Method Toilet Toilet # Voids 8 - Exam Abdomen: Soft, mild tenderness at drain site - Labs CBC & Chem 7: 03/18/19 07:19 03/18/19 07:19 Labs: Abnormal Lab Results - Last 24 Hours (Table) 03/17/19 03/18/19 03/18/19 Range/Units 20:15 06:56 07:19 Hgb 10.9 L (11.4-16.0) gm/dL Hct 33.8 L (34.0-46.0) % BUN (7-17) mg/dL Glucose (74-99) mg/dL POC Glucose (mg/dL) 155 H 122 H (75-99) mg/dL 03/18/19 03/18/19 03/18/19 Range/Units 07:19 11:20 16:09 Hgb (11.4-16.0) gm/dL Hct (34.0-46.0) % BUN 4 L (7-17) mg/dL Glucose 118 H (74-99) mg/dL POC Glucose (mg/dL) 139 H 244 H (75-99) mg/dL Microbiology - Last 24 Hours (Table) 03/14/19 18:55 Blood Culture - Preliminary Blood No Growth after 72 hours 03/15/19 13:35 Gram Stain - Final Abdomen Wound Culture - Final Strep agalactiae - (group b) Escherichia coli Assessment and Plan (1) Colonic diverticular abscess Narrative/Plan: Continue IV antibiotics. Plan discharge tomorrow with home IV antibiotics. May shower. Current Visit: Yes Status: Acute Code(s): K57.20 - DVTRCLI OF LG INT W PERFORATION AND ABSCESS W/O BLEEDING SNOMED Code(s): 999096598
[2019-03-18 20:15] LABS: Glucose,Whole Blood 148 mg/dL (75-99)
[2019-03-18] MEDS: DOCUSATE 100 MG CAP PO SCH (21:47)
--- NOTE | 2019-03-18 23:09 | P.PN ---
Subjective Progress Note Date: 03/18/19 This is a 68-year-old female gives history that about 2 weeks ago she felt something was not right in her pelvic area and thought maybe she had a bladder infection and went to see her PCP. Over the weekend, she developed significant lower abdominal pain that Worsening along with chills and bloating and constipation. Patient thought she only had constipation when she came in the hospital. She had one time history of diverticulitis. Patient came into [facility] emergency center for evaluation. She underwent a CAT scan that revealed a 4.5 x 5 cm abscess between the sigmoid colon and bladder. An adjacent smaller 2.5 cm abscess also noted. No free air. Findings consistent with diverticular abscess. The patient underwent a laparoscopic drainage of the diverticular abscess with Dr. Heller yesterday afternoon. Bone cultures were obtained. Blood culture showing no growth after 24 hours. She is currently on Anidulafungin, Flagyl and Zosyn. Patient has been started on a clear liquid diet which she is tolerating this morning without nausea or vomiting. She is not passing gas. She states she is more sore today with pain in a #8 out of 10. Pain is located in the right lower quadrant. She does complain of some gastric reflux and is on Protonix. Lion catheter is in place draining clear bethanie urine. The patient is frequently clearing her throat and feels that herSchatzki ring which has been dilated by Dr. Wilcox in the past seems to be irritated. She denies postnasal drainage. 03/17/2019 patient is Started to feel somewhat better. The abdominal pain is improving. Reflux is improved. Throat discomfort is improving. Denies fevers or chills. 03/18/2019 patient is definitely feeling better today. 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 Her abdominal pain is improved. Appetite is still poor but understands the importance of protein intake. Objective - Vital Signs Vital signs: Vital Signs Temp 98.7 F 03/18/19 20:05 Pulse 90 03/18/19 20:05 Resp 14 03/18/19 20:05 BP 157/97 03/18/19 20:05 Pulse Ox 97 03/18/19 20:05 Intake & Output 03/18/19 03/18/19 03/19/19 06:59 18:59 06:59 Intake Total 100 370 Output Total 25 10 Balance 75 360 Intake: Intake, IV Titration 100 150 Amount Anidulafungin 100 mg In 100 Sodium Chloride 0.9% 100 ml @ 84 mls/hr IVPB DAILY [facility] Rx#:[id number] Ertapenem 1 gm In Sodium 50 Chloride 0.9% 50 ml @ 100 mls/hr IVPB DAILY [facility] Rx #:[id number] metroNIDAZOLE-NS PMX 500 100 mg In Saline 1 100ml.bag @ 100 mls/hr IVPB Q8H [facility] Rx#:[id number] Oral 220 Output: Drainage 25 10 Abdomen 25 10 Other: Voiding Method Toilet Toilet Toilet # Voids 8 - Exam Gen: This is a 68-year-old female. She is sitting up in bed and appears to be comfortable and in no acute distress. HEENT: Head is atraumatic, normocephalic. Pupils equal, round. Sclerae is anicteric. Oral mucous membranes are moist. Oropharynx without significant erythema or edema. NECK: Supple. No JVD. No lymphadenopathy. No thyromegaly. LUNGS: Clear to auscultation. No wheezes or rhonchi. No intercostal retractions. HEART: Regular rate and rhythm. No murmur. ABDOMEN: Soft. Bowel sounds are present. No masses. Mild tenderness right lower quadrant. Dressing and ZACK drain with serosanguineous fluid the right lower quadrant. Lion catheter draining clear bethanie urine. EXTREMITIES: No pedal edema. No calf tenderness. Dorsalis pedis +2 bilaterally. NEUROLOGICAL: Patient is awake, alert and oriented x3 - Labs CBC & Chem 7: 03/18/19 07:19 03/18/19 07:19 Labs: Abnormal Lab Results - Last 24 Hours (Table) 03/18/19 03/18/19 03/18/19 Range/Units 06:56 07:19 07:19 Hgb 10.9 L (11.4-16.0) gm/dL Hct 33.8 L (34.0-46.0) % BUN 4 L (7-17) mg/dL Glucose 118 H (74-99) mg/dL POC Glucose (mg/dL) 122 H (75-99) mg/dL 03/18/19 03/18/19 03/18/19 Range/Units 11:20 16:09 20:13 Hgb (11.4-16.0) gm/dL Hct (34.0-46.0) % BUN (7-17) mg/dL Glucose (74-99) mg/dL POC Glucose (mg/dL) 139 H 244 H 148 H (75-99) mg/dL Microbiology - Last 24 Hours (Table) 03/14/19 18:55 Blood Culture - Preliminary Blood No Growth after 96 hours Laboratory Results WBC 9.3 k/uL (3.8-10.6) 03/18/19 07:19 RBC 3.86 m/uL (3.80-5.40) 03/18/19 07:19 Hgb 10.9 gm/dL (11.4-16.0) L 03/18/19 07:19 Hct 33.8 % (34.0-46.0) L 03/18/19 07:19 MCV 87.6 fL (80.0-100.0) 03/18/19 07:19 MCH 28.3 pg (25.0-35.0) 03/18/19 07:19 MCHC 32.3 g/dL (31.0-37.0) 03/18/19 07:19 RDW 13.5 % (11.5-15.5) 03/18/19 07:19 Plt Count 424 k/uL (150-450) 03/18/19 07:19 Neutrophils % 72 % 03/18/19 07:19 Lymphocytes % 18 % 03/18/19 07:19 Monocytes % 6 % 03/18/19 07:19 Eosinophils % 3 % 03/18/19 07:19 Basophils % 0 % 03/18/19 07:19 Neutrophils # 6.6 k/uL (1.3-7.7) 03/18/19 07:19 Lymphocytes # 1.6 k/uL (1.0-4.8) 03/18/19 07:19 Monocytes # 0.5 k/uL (0-1.0) 03/18/19 07:19 Eosinophils # 0.3 k/uL (0-0.7) 03/18/19 07:19 Basophils # 0.0 k/uL (0-0.2) 03/18/19 07:19 PT 10.0 sec (9.0-12.0) 03/15/19 06:54 INR 0.9 (<1.2) 03/15/19 06:54 APTT 23.3 sec (22.0-30.0) 03/15/19 06:54 Sodium 141 mmol/L (137-145) 03/18/19 07:19 Potassium 3.6 mmol/L (3.5-5.1) 03/18/19 07:19 Chloride 107 mmol/L (98-107) 03/18/19 07:19 Carbon Dioxide 22 mmol/L (22-30) 03/18/19 07:19 Anion Gap 12 mmol/L 03/18/19 07:19 BUN 4 mg/dL (7-17) L 03/18/19 07:19 Creatinine 0.56 mg/dL (0.52-1.04) 03/18/19 07:19 Est GFR (CKD-EPI)AfAm >90 (>60 ml/min/1.73 sqM) 03/18/19 07:19 Est GFR (CKD-EPI)NonAf >90 (>60 ml/min/1.73 sqM) 03/18/19 07:19 Glucose 118 mg/dL (74-99) H 03/18/19 07:19 POC Glucose (mg/dL) 148 mg/dL (75-99) H 03/18/19 20:13 POC Glu Table Games Dual Rate Supervisor JACOB Claribel Kenny 03/18/19 20:[address] Glu mg/dL 183 03/15/19 06:54 Hemoglobin A1c 8.0 % (4.0-6.0) H 03/15/19 06:54 Lactic Ac Sepsis Rflx Y 03/14/19 19:32 Plasma Lactic Acid Dread 1.2 mmol/L (0.7-2.0) 03/14/19 22:41 Calcium 8.6 mg/dL (8.4-10.2) 03/18/19 07:19 Total Bilirubin 0.7 mg/dL (0.2-1.3) 03/15/19 06:54 AST 23 U/L (14-36) 03/15/19 06:54 ALT 18 U/L (9-52) 03/15/19 06:54 Alkaline Phosphatase 116 U/L (38-126) 03/15/19 06:54 NT-Pro-B Natriuret Pep 204 pg/mL 03/15/19 06:54 Total Protein 5.9 g/dL (6.3-8.2) L 03/15/19 06:54 Albumin 2.9 g/dL (3.5-5.0) L 03/15/19 06:54 Amylase <30 U/L (30-110) L 03/14/19 18:55 Lipase 30 U/L (23-300) 03/14/19 18:55 CA 125 Antigen 6.5 U/mL (0.0-30.1) 03/16/19 07:04 Urine Color Yellow 03/14/19 18:55 Urine Appearance Cloudy (Clear) H 03/14/19 18:55 Urine pH 6.5 (5.0-8.0) 03/14/19 18:55 Ur Specific [place] 1.017 (1.001-1.035) 03/14/19 18:55 Urine Protein 1+ (Negative) H 03/14/19 18:55 Urine Glucose (UA) 2+ (Negative) H 03/14/19 18:55 Urine Ketones Negative (Negative) 03/14/19 18:55 Urine Blood Negative (Negative) 03/14/19 18:55 Urine Nitrite Negative (Negative) 03/14/19 18:55 Urine Bilirubin Negative (Negative) 03/14/19 18:55 Urine Urobilinogen <2.0 mg/dL (<2.0) 03/14/19 18:55 Ur Leukocyte Esterase Negative (Negative) 03/14/19 18:55 Urine WBC 7 /hpf (0-5) H 03/14/19 18:55 Ur Squamous Epith Cells 13 /hpf (0-4) H 03/14/19 18:55 Urine Bacteria Few /hpf (None) H 03/14/19 18:55 Urine Mucus Many /hpf (None) H 03/14/19 18:55 Stool Occult Blood Negative (Negative) 03/14/19 19:30 Microbiology 03/14/19 18:55 Blood Blood Culture - Preliminary No Growth after 96 hours 03/15/19 13:35 Abdomen Gram Stain - Final 03/15/19 13:35 Abdomen Wound Culture - Final Strep agalactiae - (group b) Escherichia coli 03/15/19 13:35 Abdomen Anaerobic Culture - Preliminary Assessment and Plan (1) Diverticulitis of large intestine with complication Narrative/Plan: Pleasant 68-year-old woman who is status post a laparoscopic intervention to her pelvic abscess. Patient have a consult antifungal therapy was added given the complexity of the infection. Cultures are pending and will further help direct the course of antibiotic therapy discharge. Given the difficulties of the situation and the goal to have resolution of the infection then she can proceed to colonoscopy and possibly colonic resection we'll likely use outpatient intravenous antibiotic therapy. 03/17/2019 [place] patient to be feeling somewhat better. We have asked for a midline catheter in a couple of weeks of outpatient changes antibiotic therapy to allow improvement of the significant infectious process intra-abdominally from her diverticulitis. Then outpatient evaluations will continue until she has the resection of the involved site. Her leukocytosis is improved. Pain is improving. Cultures in process. We've asked for evaluation of [place]. 03/18/2019 the patient does have some improvement of her status. And discharge planning is being finalized. We will have outpatient intravenous antibiotic therapy with Invanz for her intra-abdominal infection with group B strep and E. coli that is quinolone resistant. She is definitely feeling better is counseled on the importance of good protein intake to allow healing. She will need to improve her performance status to allow recovery and then proceed to the colonoscopy and resection in the future. Current Visit: Yes Status: Acute Code(s): K57.32 - DVTRCLI OF LG INT W/O PERFORATION OR ABSCESS W/O BLEEDING SNOMED Code(s): 527211027 (2) Leukocytosis Current Visit: Yes Status: Acute Code(s): D72.829 - ELEVATED WHITE BLOOD CELL COUNT, UNSPECIFIED SNOMED Code(s): 503070283
[2019-03-19] MEDS: HEPARIN SODIUM,PORCINE 5,000 UNIT/ML 1 ML VIAL SQ SCH ×2 (00:47→08:43)
[2019-03-19] MEDS: SODIUM CHLORIDE 0.9% 1,000 ML IV SCH (00:48)
[2019-03-19 02:09] VITALS: RESP 18
[2019-03-19] MEDS: HYDROcodone/APAP 5-325MG 1 EACH TAB PO PRN ×2 (03:33→08:42)
[2019-03-19 06:46] LABS: Glucose,Whole Blood 121 mg/dL (75-99)
[2019-03-19] MEDS: INSULIN ASPART (NovoLOG) 100 UNIT/ML VIAL SQ SCH ×2 (07:42→12:02)
[2019-03-19 07:56] VITALS: BP 168/107; PULSE 102; TEMP 97.8
[2019-03-19] MEDS: PANTOPRAZOLE 40 MG TABLET PO SCH (08:42)
[2019-03-19] MEDS: DOCUSATE 100 MG CAP PO SCH (08:43)
[2019-03-19] MEDS: ANIDULAFUNGIN 100 MG in SODIUM CHLORIDE 0.9% 100 ML IVPB SCH (08:45)
[2019-03-19] MEDS: ERTAPENEM 1 GM in SODIUM CHLORIDE 0.9% 50 ML IVPB SCH (10:12)
[2019-03-19 11:46] LABS: Glucose,Whole Blood 142 mg/dL (75-99)
--- NOTE | 2019-03-19 13:18 | P.DS ---
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 Ann. She has underlying history of diverticular disease, admitted to the emergency room secondary to 2 weeks of abdominal pain, and abdominal distention. Patient was evaluated/examined by PCP 2 weeks ago, and as she thought to have a urinary trac t infection. She was started on stool softeners as the urine was clean scheduled to have an abdominal US in am, patient has diminished appetite, has chills no fevers, increasing abdominal pain in the lower left lower quadrant area, she was subsequently seen in the emergency room, secondary to acute complex diverticulitis. Emergency room evaluation included a CAT scan of the abdomen and pelvis showing complex diverticulitis with abscess formation, patient was started on IV Zosyn, as white count is 15, and was scheduled to undergo emergent pelvic abscess drainage, we are consulted medically for preop clearance, I have requested an EKG, and a PUBLIC SAFETY OFFICER proBNP, patient was sent down to the operating table without these numbers, she denies any history of CAD no CHF in the past, patient has diabetes mellitus on oral agents, not insulin, no history off underlying kidney disease stage III, no history of CVA in the past. 03/16: Yesterday, patient underwent a laparoscopic drainage of the diverticular abscess with Dr. Heller. Bone cultures were obtained. Blood culture showing no growth after 24 hours. She is currently on Anidulafungin, Flagyl and Zosyn and managed by Dr. Ruiz. Patient has been started on a clear liquid diet which she is tolerating this morning without nausea or vomiting. She is not passing gas. She states she is more sore today with pain in a #8 out of 10. Pain is located in the right lower quadrant. She does complain of some gastric reflux and is on Protonix. Lion catheter is in place draining clear bethanie urine. The patient is frequently clearing her throat and feels that her Schatzki ring which has been dilated by Dr. Wilcox in the past seems to be irritated. She denies postnasal drainage. WBC count is improved to 12, creatinine 0.62. Sodium 139, potassium 4.1, chloride 109, CO2 19. Blood sugars are running between 90 and 128. Patient will be placed on sliding insulin scale for now. She has been afebrile, blood pressure 129/74, pulse ox 96% on room air, heart rate 88. 03/17: Patient has been evaluated by Dr. Ruiz with recommendations that patient will require outpatient IV antibiotics. Blood cultures showing no growth at 48 hours and we will plan to order line placement today in preparation for possible discharge in the next 24-48 hours. The patient states she did not sleep well last night but normally does not sleep well on a regular basis. She states she is tired and she wants to get shower today. She is taking Ransom and Toradol for pain control currently pain is #7 but mostly soreness. She is currently on a low fiber diet. She has passed gas without a bowel movement. Hemoglobin A1c came back at 8, there will be ordered for the patient by case management. Patient has been afebrile, heart rate 91, blood pressure 183/77, pulse ox 97% on room air. CA-125 is 6.5. 03/18: Patient is doing well pain is under better control she is having bowel movement and diet was slightly titrated. Her culture was positive and Dr. Amanda briscoe inpatient regularly will be on IV antibiotics for total of 2 weeks patient will be going for PICC line prepare for her discharge in the next 24-[address] segura and if recovering from the current abscess and infection with well patient might be back to have surgery sometime in 6-8 weeks. Her PICC line is in and IV antibiotic arrangement as an outpatient was made for the next 2 weeks patient be discharged home today. - Exam CONSTITUTIONAL: Well-developed no acute respiratory distress. EYES: No icterus sclerae, no conjunctivitis. EARS, NOSE, MOUTH, THROAT, and FACE: No sore throat, lymphadenopathy, carotid bruits or deformity. RESPIRATORY: No SOB cough or wheezes. CARDIOVASCULAR: No CP, Palpitation, PND, Orthopnea, or angina. GASTROINTESTINAL: Positive abdominal pain still have drainage tube on the right side slight discomfort with no sign of bleeding. No nausea or vomiting. GENITOURINARY: Negative for Hematuria or UTI, no kidney stones. INTEGUMENT/BREAST: Negative for any muscular injury with mild osteoarthritis.. HEMATOLOGIC/LYMPHATIC: Negative for bleed or purpura. MUSCULOSKELTAL: Negative for Myalgia or arthralgia. NEURLOGICAL: No LOC, Sz or syncope, blurred vision dizziness or abnormality.. BEHAVIORAL/PSYCH: Negative. ENDOCRINE: Negative. - Exam Gen: This is a 68-year-old female. She is sitting up in bed and appears to be comfortable and in no acute distress. HEENT: Head is atraumatic, normocephalic. Pupils equal, round. Sclerae is anicteric. Oral mucous membranes are moist. Oropharynx without significant erythema or edema. NECK: Supple. No JVD. No lymphadenopathy. No thyromegaly. LUNGS: Clear to auscultation. No wheezes or rhonchi. No intercostal retractions. HEART: Regular rate and rhythm. No murmur. ABDOMEN: Soft. Bowel sounds are present. No masses. Mild tenderness right lower quadrant. Dressingin place. ZACK drain with serosanguineous fluid the right lower quadrant. Lion catheter draining clear bethanie urine. EXTREMITIES: No pedal edema. No calf tenderness. Dorsalis pedis +2 bilaterally. NEUROLOGICAL: Patient is awake, alert and oriented x3. Cranial nerves 2 through 12 are grossly intact. Assessment and Plan Plan: 1 acute diverticulitis with abscess formation: Post drainage patient still have drainage tube, still on IV antibiotics with significant finding so far but has been recovering nicely will be on IV antibiotic for total of 2 weeks associated the hospital. 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 3 type 2 diabetes: Has been on Prandin and Januvia patient is on insulin currently we'll continue short-acting insulin before meals meals patient be trained for it and supported through her A1c has an outpatient was only 6.7 despite being a this time most likely the effect of the inflammation the infection and severity of the abdominal pain. 4 hyperlipidemia: Continue simvastatin. 5 UTI: Remain on antibiotics patient will be switched to ertapenem. 6 severe GERD: Patient remain on pantoprazole in the hospital. Patient is doing very well on 02/16/2019 will be discharged home today to follow-up as an outpatient by myself and Dr. segura and Dr. Ruiz as an outpatient Patient Condition at Discharge: Fair Plan - Discharge Summary Discharge Rx Participant: Yes New Discharge Prescriptions: New Ertapenem [INVanz] 1 gm IVPB Q24H #14 bag Ertapenem [INVanz] 1 gm IVPB DAILY vial HYDROcodone/APAP 5-325MG [Ransom 5-325] 1 each PO Q4HR PRN #12 tab PRN Reason: MODERATE Pain INSULIN ASPART (NovoLOG) [NovoLOG (formulary)] 0 unit SQ ACHS vial Acetaminophen Tab [Tylenol] 650 mg PO Q6HR PRN tab PRN Reason: Mild Pain Or Fever > 100.5 Continue Simvastatin [Zocor] 20 mg PO HS Omeprazole [PriLOSEC] 20 mg PO HS Sennosides [Senokot] 8.6 mg PO HS Repaglinide [Prandin] 1 mg PO AC-BID Polyethylene Glycol 3350 [Miralax] 17 gm PO HS Ergocalciferol [Vitamin D2 (DRISDOL)] 50,000 unit PO TU sitaGLIPtin [Januvia] 100 mg PO HS Discharge Medication List Omeprazole [PriLOSEC] 20 mg PO HS 07/10/17 [History] Simvastatin [Zocor] 20 mg PO HS 07/10/17 [History] Ergocalciferol [Vitamin D2 (DRISDOL)] 50,000 unit PO TU 03/14/19 [History] Polyethylene Glycol 3350 [Miralax] 17 gm PO HS 03/14/19 [History] Repaglinide [Prandin] 1 mg PO AC-BID 03/14/19 [History] Sennosides [Senokot] 8.6 mg PO HS 03/14/19 [History] sitaGLIPtin [Januvia] 100 mg PO HS 03/14/19 [History] Ertapenem [INVanz] 1 gm IVPB Q24H #14 bag 03/17/19 [Rx] Acetaminophen Tab [Tylenol] 650 mg PO Q6HR PRN tab 03/19/19 [Rx] Ertapenem [INVanz] 1 gm IVPB DAILY vial 03/19/19 [Rx] HYDROcodone/APAP 5-325MG [Ransom 5-325] 1 each PO Q4HR PRN #12 tab 03/19/19 [Rx] INSULIN ASPART (NovoLOG) [NovoLOG (formulary)] 0 unit SQ ACHS vial 03/19/19 [Rx] Follow up Appointment(s)/Referral(s): Beto Heller MD [Medical Doctor] - 03/25/19 3:00 pm Tariq Ruiz MD [STAFF PHYSICIAN] - 1 Week (Office will be in contact with patient upon discharge to set up a follow up appointment) Tariq Ann MD [Primary Care Provider] - 1 Week (Office will be in contact with patient within 24-48 hours upon discharge to set up a follow up appointment) [facility] [NON-STAFF] - Activity/Diet/Wound Care/Special Instructions: 1. [employer] for glucometer: [phone]. . [employer] will deliver an assignment of benefits form in 2-5 business days through the mail. Please sign, date, and return to [employer]. They will also send you a sample glucometer in 2-5 days. After they receive the assignment of benefits agreement, they will mail you a permanent glucometer. You have a 20% copay for the glucometer and supplies according to [employer]. 2. Please check your blood sugar once a day before breakfast and keep a log of it. Take to your follow up appointment with Dr. Ann. 3. Dr. Ruiz's office ([facility]) for outpatient IV antibiotic therapy: 1st appointment on 03/20/19 at 10:15. Address: [address] [place] [address], [address] . Discharge Disposition: HOME SELF-CARE
== END 2019-03-19 14:55 | disposition home or self-care (01) | DRG 872 ==
LOC: EC 18:23 → 4SSUR 20:52
PROVIDERS: ADMIT Surgery; ATTEND Surgery
PROC: 0W9G40Z Drainage of Peritoneal Cavity with Drainage Device, Percutaneous Endoscopic Approach (ICD-10-PCS; principal; 2019-03-15 12:00)
PROC: 05HC33Z Insertion of Infusion Device into Left Basilic Vein, Percutaneous Approach (ICD-10-PCS; 2019-03-18 11:30)
DX: A41.9 Sepsis, unspecified organism (principal); K57.20 Diverticulitis of large intestine with perforation and abscess without bleeding; N32.1 Vesicointestinal fistula; N39.0 Urinary tract infection, site not specified; B95.1 Streptococcus, group B, as the cause of diseases classified elsewhere; K22.2 Esophageal obstruction; E11.9 Type 2 diabetes mellitus without complications; E78.5 Hyperlipidemia, unspecified; K21.9 Gastro-esophageal reflux disease without esophagitis; K59.00 Constipation, unspecified; N83.201 Unspecified ovarian cyst, right side; M81.0 Age-related osteoporosis without current pathological fracture; E66.9 Obesity, unspecified; B96.20 Unspecified Escherichia coli [E. coli] as the cause of diseases classified elsewhere; Z16.23 Resistance to quinolones and fluoroquinolones; Z68.32 Body mass index [BMI] 32.0-32.9, adult; Z79.84 Long term (current) use of oral hypoglycemic drugs; Z79.899 Other long term (current) drug therapy; Z88.8 Allergy status to other drugs, medicaments and biological substances; Z90.710 Acquired absence of both cervix and uterus; Z86.010 Personal history of colon polyps; Z80.7 Family history of other malignant neoplasms of lymphoid, hematopoietic and related tissues
CPT/HCPCS: 36410; 36415; 51798; 71046; 74018; 74177; 76937; 80048; 80053; 81001; 82150; 82272; 83036; 83605; 83690; 83880; 85025; 85610; 85730; 86304; 87040; 87070; 87075; 87077; 87186; 87205; 96361; 96365; 96375; 99285

== ENCOUNTER → 2019-04-28 | Outpatient (CLI) | payer MEDICARE ==
--- NOTE | 2019-04-28 09:24 | CT ---
EXAMINATION TYPE: CT abdomen pelvis wo/w con DATE OF EXAM: 04/28/2019 COMPARISON: Prior CT 03/14/2019 HISTORY: Follow up on abscess CT DLP: 2056 mGycm Automated exposure control for dose reduction was used. TECHNIQUE: Helical acquisition of images was performed from the lung bases through the pelvis. CONTRAST: Performed with Oral Contrast and without and with IV Contrast, patient injected with 100 mL of Isovue 300. FINDINGS: Previously identified abscess at the level of the dome of the bladder is again noted but peres s decreased in size measuring approximately 3.8 cm with central low attenuation decrease from approxi mately 5 cm. There is less inflammatory change present within the perirectal: Region. There is abnorm al increased attenuation that has developed in the interval coursing towards the right lower quadrant similar to prior exam, pericolonic abscess shows associated phlegmon posterior to the distal ileum a nd inferior margin of the cecum towards the region deep to the right rectus muscle with persistent sm all abscess noted along the right hemipelvis measuring now 2.4 cm on axial image 56, there is a linea r focus of increased attenuation extending towards the skin which may represent a fistulous tract. LUNG BASES: Nodular density right middle lobe, basilar lung nodules are stable. LIVER/GB: No significant abnormality is appreciated. PANCREAS: No significant abnormality is seen. SPLEEN: No significant interval change is seen. ADRENALS: No significant abnormality is seen. KIDNEYS: No significant interval change is seen. FREE AIR: No free air is visualized. RETROPERITONEAL ADENOPATHY: None visualized REPRODUCTIVE ORGANS: No significant abnormality is seen URINARY BLADDER: Mass effect from the abscess is again noted. PELVIC ADENOPATHY: None visualized. OSSEOUS STRUCTURES: No significant abnormality is seen. BOWEL: Diverticular change again noted associated with the colon. OTHER: Sizable hiatal hernia, partial intrathoracic stomach again noted IMPRESSION: THERE HAS BEEN INTERVAL DEVELOPMENT OF INFLAMMATORY CHANGE, PHLEGMON EXTENDING TOWARDS THE RIGHT LOWE R QUADRANT, SUSPECT THERE MAY BE FISTULA FORMATION, CORRELATE FOR ABNORMAL SKIN DRAINAGE. DEEP PELVIS ABSCESS HAS DECREASED SLIGHTLY IN THE INTERVAL, THERE MAY BE DECOMPRESSION WITH SECONDARY INFLAMMATO RY CHANGES NOTED ALONG THE CECUM AND ILEUM, RIGHT LOWER QUADRANT DESCRIBED
== END | disposition home or self-care (01) ==
LOC: RADCTMAIN 07:00
PROVIDERS: ATTEND Internal Medicine Geriatric Medicine
DX: N73.9 Female pelvic inflammatory disease, unspecified (principal); K29.70 Gastritis, unspecified, without bleeding
CPT/HCPCS: 36415; 74178; 82565; 84520

== ENCOUNTER 2020-08-02 04:39 | Emergency (ER) | payer MEDICARE ==
--- NOTE | 2020-08-02 05:17 | ED ---
Upper Extremity HPI <Moraima Quiñones - Last Filed: 08/02/20 06:59> - General Source: patient Mode of arrival: ambulatory Limitations: no limitations <Cammy Oneill - Last Filed: 08/02/20 07:25> - General Chief Complaint: Extremity Injury, Upper Stated Complaint: Fall, shoulder injury Time Seen by Provider: 08/02/20 05:02 - History of Present Illness Initial Comments: Lilliam is a pleasant 70-year-old female who presents to the ER today for evaluation of left shoulder pain. Patient reports she lost her footing going down the steps and fell landing on her left shoulder. She estimates she went down for 8 steps. She did not hit her head she did not lose consciousness she immediately had pain in the left shoulder and noted some deformity which prompted her come the ER for evaluation. Patient denies any numbness or tingling in the hand, she denies any injury to the wrist or elbow. (Cammy Oneill) - Related Data Home Medications Medication Instructions Recorded Confirmed Omeprazole [PriLOSEC] 20 mg PO HS 07/10/17 03/14/19 Simvastatin [Zocor] 20 mg PO HS 07/10/17 03/14/19 Ergocalciferol [Vitamin D2 50,000 unit PO TU 03/14/19 03/14/19 (DRISDOL)] Repaglinide [Prandin] 1 mg PO AC-BID 03/14/19 03/14/19 Sennosides [Senokot] 8.6 mg PO HS 03/14/19 03/14/19 polyethylene glycoL 3350 [Miralax] 17 gm PO HS 03/14/19 03/14/19 sitaGLIPtin [Januvia] 100 mg PO HS 03/14/19 03/14/19 Previous Rx's Medication Instructions Recorded Ertapenem [INVanz] 1 gm IVPB Q24H #14 bag 03/17/19 Acetaminophen Tab [Tylenol] 650 mg PO Q6HR PRN tab 03/19/19 Ertapenem [INVanz] 1 gm IVPB DAILY vial 03/19/19 HYDROcodone/APAP 5-325MG [Alta 1 each PO Q4HR PRN #12 tab 03/19/19 5-325] INSULIN ASPART (NovoLOG) [NovoLOG 0 unit SQ ACHS vial 03/19/19 (formulary)] Allergies Allergy/AdvReac Type Severity Reaction Status Date / Time chlorpromazine AdvReac felt like Verified 08/02/20 04:44 [From Thorazine] skin crawling Review of Systems ROS Other: All systems not noted in ROS Statement are negative. <NuriaMoraima - Last Filed: 08/02/20 06:59> ROS Other: All systems not noted in ROS Statement are negative. <Cammy Oneill - Last Filed: 08/02/20 07:25> ROS Statement: Those systems with pertinent positive or pertinent negative responses have been documented in the HPI. Past Medical History Past Medical History: Diabetes Mellitus, GERD/Reflux, Hyperlipidemia Additional Past Medical History / Comment(s): hx. colon polyps, Schatzki ring, diverticulitis, diverticular abscess History of Any Multi-Drug Resistant Organisms: None Reported Past Surgical History: Hysterectomy Additional Past Surgical History / Comment(s): rectocele,cystocele repair, Schatzki ring dilatation, laparoscopic drainage of diverticular abscess Past Anesthesia/Blood Transfusion Reactions: No Reported Reaction Past Psychological History: No Psychological Hx Reported Smoking Status: Never smoker Past Alcohol Use History: None Reported Past Drug Use History: None Reported - Past Family History Father Family Medical History: Cancer Additional Family Medical History / Comment(s): non hodgkins lymphoma Mother Family Medical History: No Reported History Additional Family Medical History / Comment(s): at 90 alzeimers <Cammy Oneill P - Last Filed: 08/02/20 07:25> General Exam Limitations: no limitations <Cammy Oneill P - Last Filed: 08/02/20 07:25> - General Exam Comments Initial Comments: Physical Exam GENERAL: Patient is well-developed and well-nourished. Patient is nontoxic and well-hydrated and is in no distress. HENT: Normocephalic, Atraumatic. EYES: PERRL, EOMI PULMONARY: Unlabored respirations. CARDIOVASCULAR: RRR Warm and well perfused extremities Radial ulnar pulses strong bilaterally ABDOMEN: Non-distended SKIN: No rashes or bruising : Deferred NEUROLOGIC: Alert and oriented Normal speech Normal gait MUSCULOSKELETAL: Obvious deformity of the left shoulder Full range of motion of the left elbow and wrist, normal strength in the hand PSYCHIATRIC: No SI/HI (Cammy Oneill) Course Vital Signs 08/02/20 08/02/20 08/02/20 04:41 06:20 06:29 Temperature 98 F Pulse Rate 87 101 H 105 H Respiratory 18 16 14 Rate Blood Pressure 123/66 171/95 150/90 O2 Sat by Pulse 99 100 98 Oximetry 08/02/20 08/02/20 06:34 06:39 Temperature Pulse Rate 100 100 Respiratory 16 16 Rate Blood Pressure 145/96 143/97 O2 Sat by Pulse 100 100 Oximetry Procedures - Orthopedic Joint Reduction Joint #1 Side: left Joint Reduction Location: shoulder Analgesia: procedural sedation Shoulder Technique Used (if applicable): traction/counter-traction Technique Used: traction/counter-traction Post Reduction X-Ray Obtained: Yes Splint Applied: Yes (sling) Patient Tolerated Procedure: well <Moraima Quiñones - Last Filed: 08/02/20 06:59> - [place] Protocol (Time Out) Procedure Performed:: conscious sedation and reduction of left shoulder dislocation Performing Provider: Cammy Oneill Nurse: Maria Dolores Araya Respiratory Therapist: Anisha Price Timeout Date: 08/02/20 Timeout Time: 06:20 Patient Identification (2 identifiers required): Chart, Verbal Patient/Legal Chief Pilot has Confirmed: Identity, Site, Procedure, Consent Site Marked: No Site Verified With Patient/Guardian: Yes Final Confirmation: Procedure, Site, Laterality, Patient Position, Radiographs, Confirmed w/Provider - Procedural Sedation Procedural Sedation Start Time: 06:24 Procedural Sedation Stop Time: 06:30 Indications: fracture/dislocation reduction ASA Class: II Mallampati Airway Score: 1 Preparation: cafeteria monitor applied, pulse oximeter, capnometry used, supplemental O2 applied, suction/airway equipment at bedside, IV secured IV Propofol Dose (mgs): 100 Complications: none Patient Tolerated Procedure: well <Cammy Oneill - Last Filed: 08/02/20 07:25> - Orthopedic Joint Reduction Joint #1 Additional Comments: Patient is reevaluated after reduction is neurovascularly intact. (Moraima Quiñones) Medical Decision Making <Cammy Oneill - Last Filed: 08/02/20 07:25> - Medical Decision Making she was seen and evaluated, history is obtained from the patient History and physical exam are concerning for a likely dislocation of the left shoulder, neurovascularly intact I reviewed the x-ray which reveals an anterior dislocation of the shoulder Patient consented to procedural sedation Procedural sedation was performed with propofol, the left shoulder was reduced by Moraima ADAMS Patient tolerated procedure well, woke up feeling much better, arm was placed in sling Repeat xray obtained revealed hill-sachs deformity, patient and were updated on findings, plan to follow up with OA Patient discharged home in stable condition (Cammy Oneill) Disposition <Moraima Quiñones - Last Filed: 08/02/20 06:59> Is patient prescribed a controlled substance at d/c from ED?: No <Cammy Oneill - Last Filed: 08/02/20 07:25> Clinical Impression: Dislocation of shoulder region, Hill Sachs deformity, left Disposition: HOME SELF-CARE Condition: Stable Instructions (If sedation given, give patient instructions): Shoulder Dislocation (ED), Moderate Sedation (ED) Referrals: Tariq Ann MD [Primary Care Provider] - 1-2 days Luis Bennett DO [Doctor of Osteopathic Medicine] - 1-2 days
[2020-08-02] MEDS ORDERED: SODIUM CHLORIDE 0.9% 500 ML 500 ML IV STA (05:32)
[2020-08-02] MEDS ORDERED: PROPOFOL 10 MG/ML 20 ML VIAL IV STA (05:32)
--- NOTE | 2020-08-02 05:48 | XR ---
EXAM: XR Left Shoulder Complete, 2 or More Views CLINICAL HISTORY: ITS.REASON XR Reason: shoulder pain TECHNIQUE: Two or more views of the left shoulder. COMPARISON: No relevant prior studies available. FINDINGS/IMPRESSION: Anterior-inferior shoulder dislocation with a Hill-Sachs impaction fracture of the posterior-superior humeral head. Irregularity of the inferior glenoid, concerning for an osseous Bankart fracture. Postreduction views recommended.
[2020-08-02] MEDS ORDERED: PROPOFOL 10 MG/ML 20 ML VIAL IV ONE (06:24)
--- NOTE | 2020-08-02 06:53 | XR ---
EXAM: XR Left Shoulder Complete, 2 or More Views CLINICAL HISTORY: ITS.REASON XR Reason: post reduction TECHNIQUE: Two or more views of the left shoulder. COMPARISON: Pre-reduction views from earlier the same day. FINDINGS/IMPRESSION: Status post closed reduction, with anatomic alignment. Shallow Hill-Sachs impaction fracture along the posterior-superior humeral head. Consider follow-up, nonemergent MRI correlation to evaluate for soft tissue injury.
[2020-08-02 07:32] VITALS: BP 159/87; PULSE 98; RESP 18; TEMP 97.9
== END 2020-08-02 07:35 | disposition home or self-care (01) ==
LOC: EC 04:39
DX: S43.085A Other dislocation of left shoulder joint, initial encounter (principal); M21.822 Other specified acquired deformities of left upper arm; E11.9 Type 2 diabetes mellitus without complications; K21.9 Gastro-esophageal reflux disease without esophagitis; E78.5 Hyperlipidemia, unspecified; Z79.899 Other long term (current) drug therapy; Z79.84 Long term (current) use of oral hypoglycemic drugs; Z88.8 Allergy status to other drugs, medicaments and biological substances; Z87.19 Personal history of other diseases of the digestive system; Z98.890 Other specified postprocedural states; W10.9XXA Fall (on) (from) unspecified stairs and steps, initial encounter; Y93.89 Activity, other specified
CPT/HCPCS: 73020; 99283; 23650; 99152; J2704

== ENCOUNTER → 2021-12-25 | Outpatient (CLI) | payer MEDICARE ==
--- NOTE | 2021-12-25 13:29 | US ---
EXAMINATION TYPE: US kidneys/renal and bladder DATE OF EXAM: 12/25/2021 COMPARISON: CT 2019 CLINICAL HISTORY: 71-year-old female N20.0 CALCULUS OF KIDNEY. TECHNIQUE: Multiple sonographic images of the kidneys and bladder are obtained. FINDINGS: EXAM MEASUREMENTS: Right Kidney: 10.0 x 4.6 x 4.7 cm Left Kidney: 9.0 x 5.2 x 5.1 cm Right Kidney: No hydronephrosis or masses seen Left Kidney: There is calyceal fullness on this side. No abnormal dilatation of the renal pelvis. No renal calculi seen. Bladder: wnl Bilateral Jets seen: Yes Incidental echogenic appearance to the liver suggesting fatty infiltration. IMPRESSION: 1. There is calyceal fullness on the left side. Unable to exclude early developing hydronephrosis. If left-sided renal colic, further evaluation can be considered. 2. No hydronephrosis on the right.
== END | disposition home or self-care (01) ==
LOC: RADUSWWP 12:55
PROVIDERS: ATTEND Internal Medicine Geriatric Medicine
DX: N20.0 Calculus of kidney (principal)
CPT/HCPCS: 76770

== ENCOUNTER → 2024-10-06 | Outpatient (CLI) | payer MEDICARE ==
--- NOTE | 2024-10-06 14:33 | XR ---
EXAMINATION TYPE: XR chest 2V DATE OF EXAM: 10/06/2024 2:11 PM COMPARISON: Chest x-ray March 14, 2019 CLINICAL INDICATION: Female, 74 years old with history of R06.02 SHORTNESS OF BREATH, TECHNIQUE: Frontal and lateral views of the chest are obtained. FINDINGS: There is chronic parenchymal changes bilaterally without suspicious new focal air space op acity, pleural effusion, or pneumothorax seen. The cardiac silhouette size is stable and upper limit s of normal. Scoliosis is redemonstrated. IMPRESSION: Chronic changes without acute pulmonary process. [facility], , 10/06/2024 2:31 PM
[2024-10-06 20:11] LABS: ALT 29 U/L (8-44); AST 29 U/L (13-35); Albumin 4.1 g/dL (3.8-4.9); Albumin/Globulin Ratio 1.64 Ratio (1.60-3.17); Alkaline Phosphatase 106 U/L (41-126); Blood Urea Nitrogen 11.9 mg/dL (9.0-27.0); Chloride 104 mmol/L (96-109); Creatine Kinase 83 U/L (26-186); Globulin 2.5 g/dL (1.6-3.3); Glucose 245 mg/dL (70-110); LDL Cholesterol,Calculated 91.3 mg/dL (0.0-131.0); Potassium 4.1 mmol/L (3.5-5.5); Sodium 140 mmol/L (135-145); T4, Free (Free Thyroxine) 1.28 ng/dL (0.80-1.80); Total Bilirubin 0.9 mg/dL (0.3-1.2); Total Protein 6.6 g/dL (6.2-8.2)
[2024-10-06 21:07] LABS: Basophils # (A) 0.04 X 10*3/uL (0.00-0.10); Basophils % (A) 0.6 %; Eosinophils # (A) 0.12 X 10*3/uL (0.04-0.35); Eosinophils % (A) 1.7 %; HCT 40.3 % (37.2-46.3); HGB 13.4 g/dL (12.0-15.0); Lymphocytes # (A) 0.94 X 10*3/uL (0.90-5.00); Lymphocytes % (A) 13.4 %; MCH 30.8 pg (27.0-32.0); MCHC 33.3 g/dL (32.0-37.0); MCV 92.6 FL (80.0-97.0); Monocytes # (A) 1.02 X 10*3/uL (0.20-1.00); Monocytes % (A) 14.5 %; NRBC Per 100 WBC 0 X 10*3/uL (0.00-0.01); Neutrophils # (A) 4.83 X 10*3/uL (1.80-7.70); Neutrophils % (A) 68.7 %; Platelet Count 248 X 10*3/uL (140-440); RBC 4.35 X 10*6/uL (4.10-5.20); WBC 7.03 X 10*3/uL (4.50-10.00)
[2024-10-06 22:10] LABS: NT-Pro-B-Type Natriuretic Pept 72 pg/mL (0-450)
== END | disposition home or self-care (01) ==
LOC: RADXRMAIN 13:46
PROVIDERS: ATTEND Internal Medicine Geriatric Medicine
DX: R06.02 Shortness of breath (principal); R00.0 Tachycardia, unspecified; E11.9 Type 2 diabetes mellitus without complications; E78.2 Mixed hyperlipidemia
CPT/HCPCS: 71046; 80053; 80061; 82550; 83036; 83880; 84439; 84443; 85025; 85379

== ENCOUNTER → 2024-10-08 | Outpatient (CLI) | payer MEDICARE ==
--- NOTE | 2024-10-08 09:37 | CT ---
EXAMINATION TYPE: CT angio chest DATE OF EXAM: 10/08/2024 COMPARISON: Radiograph 10/06/2024 HISTORY: 74-year-old female are 79.1, abnormal anticoagulation profile and shortness of breath for on e week, elevated d-dimer and SOB x few weeks. TECHNIQUE: Contiguous axial scanning of the chest after the administration of 55ml mL of Isovue 370. Coronal/sagittal MIP reconstructions performed. CT DLP: 425.0mGycm. Automatic exposure control utilized for a dose reduction. FINDINGS: The heart is upper limits of normal in size without pericardial effusion. LAD coronary calcifications are present. No flattening of the interventricular septum or reflux of contrast into the hepatic vei ns. Aorta normal caliber with bovine configuration to the aortic arch. Right hilar lymph nodes measuring up to 1.1 cm noted. No other thoracic lymphadenopathy by CT size cr iteria. Satisfactory opacification of the pulmonary arterial system without evidence for pulmonary embolus. Mild bibasilar bronchiolectasis with prominent mosaic attenuation and scattered septal lines. No lisa k consolidation or pleural effusion. Biapical pleural parenchymal scarring. A few scattered pulmonary nodules measuring up to 7 mm at the right lung base, 7 mm right middle lobe , and 6 mm right midlung. There is a moderate-sized hiatal hernia present. Visualized upper abdomen shows hilar splenule. Reverse S-shaped scoliosis and marked accentuated thoracic kyphosis. IMPRESSION: 1. No evidence for pulmonary embolus. 2. Diffuse mosaic attenuation and scattered septal lines may in part be chronic. Correlate to exclude small airways disease, atypical infections, and interstitial pneumonitis. Possible component of more chronic interstitial fibrosis. 3. A few pulmonary nodules on the right measuring 6 mm and 7 mm should be closely followed to exclude neoplasm/metastatic disease. Consider referring the patient to pulmonary medicine. 4. Mildly enlarged right hilar lymph nodes measuring up to 1.1 cm. These should also be closely follo wed to ensure stability/resolution. 5. Moderate-sized hiatal hernia. [facility], , 10/08/2024 9:35 AM
== END | disposition home or self-care (01) ==
LOC: RADCTMAIN 08:22
PROVIDERS: ATTEND Internal Medicine Geriatric Medicine
DX: R79.1 Abnormal coagulation profile (principal); R91.8 Other nonspecific abnormal finding of lung field; K44.9 Diaphragmatic hernia without obstruction or gangrene
CPT/HCPCS: 71275; Q9967